=== PATIENT | female | born 1995 | race Caucasian/White ===

== ENCOUNTER → 2017-05-27 09:36 | Outpatient (CLI) | payer OTHER, SELFPAY | PROVIDERS: PCP Family Medicine; Visit Provider Physician Assistant | DX: R00.0 Tachycardia, unspecified (principal) | CPT/HCPCS: 93005 ==

== ENCOUNTER 2017-06-03 12:17 | Outpatient (CLI) | payer OTHER, SELFPAY ==
[2017-06-03 12:56] VITALS: BP 118/75; PULSE 123; RESP 18; TEMP 37.1; O2SAT 97; BMI 25.9
== END 2017-06-03 14:10 | disposition home or self-care (01) ==
LOC: OBOUT 12:24 → OB 12:26
PROVIDERS: PCP Nurse Practitioner Obstetrics & Gynecology; Referring Provider Nurse Practitioner Obstetrics & Gynecology; Visit Provider Nurse Practitioner Obstetrics & Gynecology
DX: O26.93 Pregnancy related conditions, unspecified, third trimester (principal); Z3A.32 32 weeks gestation of pregnancy; R60.0 Localized edema; R03.0 Elevated blood-pressure reading, without diagnosis of hypertension; R00.0 Tachycardia, unspecified
CPT/HCPCS: 59025

== ENCOUNTER 2017-06-22 14:36 | Outpatient (CLI) | payer OTHER, SELFPAY ==
[2017-06-22 15:04] VITALS: BMI 57.8
[2017-06-22 15:05] VITALS: BP 121/76; PULSE 119; RESP 18; TEMP 37.2; O2SAT 97; BMI 57.8
[2017-06-22 15:23] LABS: Microscopic, Urine URINE MICROSCOPIC (MICROSCOPIC)
[2017-06-22 15:28] LABS: Appearance,Urine CLEAR (Clear); Bilirubin,Urine Negative (Negative); Blood, Urine Negative (Negative); Color,Urine YELLOW (Yellow); Glucose,Urine (UA) Negative (Negative); Ketones,Urine Negative (Negative); Leukocyte Esterase,Urine Negative (Negative); Nitrate,Urine Negative (Negative); PH,Urine 6.5 (5.0-8.5); Protein,Urine Negative (Negative); Urobilinogen,Urine 0.2 EU/dl (0.2)
[2017-06-22 16:12] LABS: Bacteria,Urine 3+ /lpf; RBC,Urine Occasional #/hpf (0-3); Squamous Epithelial Cell,Urine TNTC #/hpf (0-5)
--- NOTE | 2017-06-22 17:08 | HMH.ACPN2 ---
Internal Medicine - PN: Subj *Date: 06/22/17 *Time: 17:08 Interval history: She is a 22-year-old 1 para 0 who is 34 weeks gestational age. She complains of a headache and she is known to have migraines. She had some spots in front of her eyes. Her blood pressure is normal. She also had a few contractions. Exam Vital signs and Labs for Last 24 Hours: Temp Pulse Resp BP Pulse Ox 99.0 F 119 H 18 121/76 97 06/22/17 15:05 06/22/17 15:05 06/22/17 15:05 06/22/17 15:05 06/22/17 15:05 Laboratory Results - last 24 hr 06/22/17 14:45: Urine Color Yellow, Urine Appearance Clear, Urine pH 6.5, Ur Specific [place] 1.010, Urine Protein Negative, Urine Glucose (UA) Negative, Urine Ketones Negative, Urine Blood Negative, Urine Nitrate Negative, Urine Bilirubin Negative, Urine Urobilinogen 0.2, Ur Leukocyte Esterase Negative, Urine RBC Occasional, Urine WBC 3-5, Ur Squamous Epith Cells Tntc, Ur Transition Epith Cell 5-10, Urine Bacteria 3+ I & O for Last 24 hours: Intake & Output 06/20/17 06/21/17 06/22/17 06/23/17 11:59 11:59 11:59 11:59 Weight 326 lb 4.546 oz - Constitutional no acute distress Assessment and Plan (1) False labor before 37 completed weeks of gestation Current visit: Yes Status: Acute Category: Medical Code(s): O47.00 - False labor before 37 completed weeks of gestation, unspecified trimester - Assessment and plan all Dx Assessment and Plan for all problems:: Her cervix is long and closed. Her contractions have settled now that she has had a liter of fluid. She also received some Tylenol her headache is better. We will send her on her way home. She will continue with her labetalol and magnesium at home.
== END 2017-06-22 17:17 | disposition home or self-care (01) ==
LOC: OBOUT 14:38 → OB 14:39
PROVIDERS: PCP Nurse Practitioner Obstetrics & Gynecology; Visit Provider Nurse Practitioner Obstetrics & Gynecology
DX: O26.93 Pregnancy related conditions, unspecified, third trimester (principal); Z3A.35 35 weeks gestation of pregnancy; R51 Headache
CPT/HCPCS: 59025; 81001; 87086; 96360

== ENCOUNTER → 2017-07-01 14:35 | Outpatient (REF) | payer OTHER, SELFPAY | LOC: LAB 14:35 | PROVIDERS: Visit Provider Nurse Practitioner Obstetrics & Gynecology | DX: Z34.90 Encounter for supervision of normal pregnancy, unspecified, unspecified trimester (principal); Z3A.36 36 weeks gestation of pregnancy | CPT/HCPCS: 86403 ==

== ENCOUNTER 2017-07-13 12:18 | Inpatient (IN) | payer OTHER, SELFPAY ==
[2017-07-13] VITALS (10 sets, daily range): BP systolic 119–154; BP diastolic 74–95; PULSE 100–134; RESP 20; TEMP 37; O2SAT 98; BMI 27.8
[2017-07-13 11:54] LABS: Microscopic, Urine URINE MICROSCOPIC (MICROSCOPIC)
[2017-07-13 11:55] LABS: Appearance,Urine SL CLOUDY (Clear); Bilirubin,Urine Negative (Negative); Blood, Urine Negative (Negative); Color,Urine YELLOW (Yellow); Glucose,Urine (UA) Negative (Negative); Ketones,Urine Negative (Negative); Leukocyte Esterase,Urine Negative (Negative); Nitrate,Urine Negative (Negative); Protein,Urine Negative (Negative); Specific Gravity, Urine <= 1.005 (1.005-1.030); Urobilinogen,Urine 0.2 EU/dl (0.2)
--- NOTE | 2017-07-13 12:11 | P.HP_ITS ---
OB - H&P: HPI Antepartum - History of Present Illness Chief complaint: She woke up this morning with numbness in her hands and lips. - History of Present Criteria for establishing EDC:: LMP confirmed by 1st trimester US Ultrasounds: normal 1st trimester US, normal mid trimester US Obstetrical complications: preeclampsia Medical complications: neurological Planning to breastfeed?: Yes [facility] History I have reviewed the patient's past medical history: Yes Medical History: Reports:: Asthma Other Surgeries: Yes: Colonoscopy Amputation: No Fractures: No - *Social History Smoking Status: Never smoker Alcohol Intake: current Alcohol Intake Frequency:: holidays/special occasions only Substance Use Type: denies use *Family Hx:: Cancer, Hypertension, Coronary Artery Disease, Diabetes [employer]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 History Para: 0 Review of Systems - Review of Systems Review of systems:: pertinent systems reviewed and negative unless documented below Meds Home Medications Medication Instructions Recorded Confirmed Type ferrous sulfate 325 mg (65 mg 325 mg PO DAILY tab 05/19/17 06/22/17 History iron) tablet 1 tab PO ONCE 05/19/17 06/22/17 History vitamin,calcium,cyojzvzb-zelk-uwhqm acid tablet Labetalol HCl [Normodyne 100mg 100 mg PO BID 06/03/17 06/22/17 History tablet] Magnesium 500 mg PO DAILY 06/22/17 06/22/17 History Allergies Allergy/AdvReac Type Severity Reaction Status Date / Time nickel [NICKEL] Allergy Unknown Verified 07/01/17 08:30 OB - H&P: Exam - Physical Exam Vital signs: Temp Pulse Resp BP Pulse Ox 98.6 F 101 H 20 141/80 98 07/13/17 11:39 07/13/17 11:55 07/13/17 11:55 07/13/17 11:55 07/13/17 11:39 - Constitutional no acute distress OB - Results - Labs Labs: Urine 07/13/17 Range/Units 11:00 Urine Color Yellow (Yellow) Urine Appearance Sl cloudy (Clear) Urine pH 7.0 (5.0-8.5) Ur Specific [place] <= 1.005 (1.005-1.030) Urine Protein Negative (Negative) Urine Glucose (UA) Negative (Negative) OB - A/P Antepartum (1) Preeclampsia Current visit: Yes Status: Acute - Additional Plan Plan: induction (She had numbness on the right side of her face today and her blood pressure is elevated) Planning to breastfeed?: Yes
[2017-07-13 12:23] LABS: Amorphous Sediment,Urine 1+ /lpf; Bacteria,Urine 2+ /lpf
[2017-07-13 13:15] LABS: Basophils % 0.3 % (0.1-2.0); Eosinophils # 0.1 K/mm3 (0.0-0.4); Eosinophils % 0.7 % (0.1-12.0); Hematocrit 37.5 % (37.0-47.0); Hemoglobin 12.7 g/dL (12.2-16.2); Lymphocytes # 2.1 K/mm3 (0.7-4.5); Lymphocytes % 16.8 K/mm3 (10-50); Mean Corpuscular HGB Conc 33.7 g/dL (31.8-35.4); Mean Corpuscular Hemoglobin 29.9 pg (27.0-31.2); Mean Corpuscular Volume 88.6 fl (81-99); Mean Platelet Volume 8.7 fl (7.4-10.4); Monocytes # 1.2 K/mm3 (0.1-1.0); Monocytes % 9.5 % (1.7-9.3); Neutrophils # 9.1 K/mm3 (1.8-7.8); Neutrophils % 72.7 % (37.0-80.0); Platelet Count 251 K/mm3 (142-424); Red Blood Count 4.24 M/mm3 (4.20-5.40); Red Cell Distribution Width 14.1 % (11.5-17.5); White Blood Count 12.6 K/mm3 (4.8-10.8)
[2017-07-13 13:35] LABS: Alanine Aminotransferase 22 U/L (12-78); Anion Gap 12.9 mEq/L (5-15); Aspartate Amino Transferase 14 U/L (15-37); Blood Urea Nitrogen 5 mg/dL (7-18); Carbon Dioxide 24 mmol/L (21.0-32.0); Chloride 104 mmol/L (98-107); Creatinine Clearance Estimated 188 mL/min (0-300); Creatinine,Serum 0.52 mg/dL (0.55-1.02); Estimated Glomerular Filt Rate 145 ml/min (>60); GFR (African American) 175 ML/MIN (>60); Glucose 71 mg/dL (74-106); Potassium 3.9 mmoL/L (3.5-5.1); Sodium 137 mmol/L (136-145); Uric Acid 3.8 mg/dL (2.6-7.2)
[2017-07-13 13:47] LABS: D-Dimer 932 (0-400)
[2017-07-13 13:51] LABS: Activated Partial Thrombo Time 25.5 seconds (23.6-34.0); Fibrinogen 500 mg/dL (204-500); INR 0.87 (0.9-1.1); Prothrombin Time 9.4 seconds (9.4-11.8)
--- NOTE | 2017-07-13 17:17 | HMH.ACPN2 ---
Internal Medicine - PN: Subj *Date: 07/13/17 *Time: 17:17 Interval history: She is doing well. She denies any further episodes of numbness in her face or hands. She is on magnesium sulfate 2 g an hour and her blood pressure is normal. She is having contractions about every 5 minutes. There are mild to moderate. As result of this I elected not to put any Cervidil and since I did not want her to have tetanic contractions. Her nonstress test is reactive. Exam Vital signs and Labs for Last 24 Hours: Temp Pulse Resp BP Pulse Ox 98.6 F 101 H 20 141/80 98 07/13/17 11:39 07/13/17 11:55 07/13/17 11:55 07/13/17 11:55 07/13/17 11:39 Laboratory Results - last 24 hr 07/13/17 11:00: Urine Color Yellow, Urine Appearance Sl cloudy, Urine pH 7.0, Ur Specific [place] <= 1.005, Urine Protein Negative, Urine Glucose (UA) Negative, Urine Ketones Negative, Urine Blood Negative, Urine Nitrate Negative, Urine Bilirubin Negative, Urine Urobilinogen 0.2, Ur Leukocyte Esterase Negative, Urine WBC 3-5, Ur Squamous Epith Cells 5-10, Amorphous Sediment 1+, Urine Bacteria 2+ 07/13/17 13:00: Blood Type A Positive, Antibody Screen Negative 07/13/17 13:00: WBC 12.6 H, RBC 4.24, Hgb 12.7, Hct 37.5, MCV 88.6, MCH 29.9, MCHC 33.7, RDW 14.1, Plt Count 251, MPV 8.7, Neut % (Auto) 72.7, Lymph % (Auto) 16.8, [place] % (Auto) 9.5 H, Eos % (Auto) 0.7, Baso % (Auto) 0.3, Neut # (Auto) 9.1 H, Lymph # (Auto) 2.1, [place] # (Auto) 1.2 H, Eos # (Auto) 0.1, Baso # (Auto) 0.0 07/13/17 13:00: PT 9.4, INR 0.87 L, APTT 25.5, Fibrinogen 500, D-Dimer 932 H* 07/13/17 13:00: Sodium 137, Potassium 3.9, Chloride 104, Carbon Dioxide 24, Anion Gap 12.9, BUN 5 L, Creatinine 0.52 L, Estimated Creat Clear 188, Estimated GFR 145, Est GFR ( Amer) 175, Glucose 71 L, Uric Acid 3.8, AST 14 L, ALT 22 I & O for Last 24 hours: Intake & Output 07/11/17 07/12/17 07/13/17 07/14/17 11:59 11:59 11:59 11:59 Weight 157 lb - Constitutional no acute distress Assessment and Plan (1) Preeclampsia Current visit: Yes Status: Acute Category: Medical Code(s): O14.90 - Unspecified pre-eclampsia, unspecified trimester - Assessment and plan all Dx Assessment and Plan for all problems:: She is doing much better. We will continue to watch her overnight. We will plan to start oxytocin tomorrow morning. Her blood pressure has normalized and she has no further episodes of numbness.
[2017-07-14] VITALS (28 sets, daily range): BP systolic 97–150; BP diastolic 53–100; PULSE 107–131; RESP 13–18; TEMP 36.7–37.3; O2SAT 98–99
[2017-07-14 07:18] LABS: Magnesium 5.2 mg/dL (1.4-2.2)
--- NOTE | 2017-07-14 08:07 | HMH.LABNOT ---
Labor Note - Subjective: Date: 07/14/17 Time: 08:07 regular contraction - Objective: Contractions:: every 4-5 minutes Effacement:: 50% Station: -3 Membranes: intact - Fetus: Monitoring?: Yes monitoring type:: External - Assessment: Labor progressing?: No Cephalopelvic disproportion?: No Patient Problems: All Active Problems False labor before 37 completed weeks of gestation (Acute) Preeclampsia (Acute) (Acute) - Plan: Anesthesia for epidural?: No Continue to labor down?: Yes Plan for ?: No Continue to monitor?: Yes Start pushing?: No Comment:: Her cervix has not changed overnight despite having contractions all night long. She is still closed 50% Station -3. We will continue oxytocin for now. If she does not change her cervix and we will plan for a later today.
--- NOTE | 2017-07-14 11:03 | HMH.LABNOT ---
Labor Note - Subjective: Date: 07/14/17 Time: 11:03 regular contraction - Objective: NST:: Reactive Contractions:: every 2-3 minutes Effacement:: 50% Station: -2 Membranes: intact - Fetus: Monitoring?: Yes monitoring type:: External - Assessment: Labor progressing?: No Cephalopelvic disproportion?: No Patient Problems: All Active Problems False labor before 37 completed weeks of gestation (Acute) Preeclampsia (Acute) (Acute) - Plan: Anesthesia for epidural?: No Continue to labor down?: Yes Plan for ?: No Continue to monitor?: Yes Start pushing?: No
--- NOTE | 2017-07-14 13:40 | HMH.LABNOT ---
Labor Note - Subjective: Date: 07/14/17 Time: 13:40 regular contraction - Objective: NST:: Reactive Cervical Dilation:: 1-2 Effacement:: 50% Station: -2 Membranes: ruptured, articially ruptured - Fetus: Monitoring?: Yes monitoring type:: External - Assessment: Labor progressing?: Yes Cephalopelvic disproportion?: No Patient Problems: All Active Problems False labor before 37 completed weeks of gestation (Acute) Preeclampsia (Acute) (Acute) - Plan: Anesthesia for epidural?: No Continue to labor down?: Yes Plan for ?: No Continue to monitor?: Yes Start pushing?: No
--- NOTE | 2017-07-14 16:15 | HMH.ANESCL ---
[facility] Anesthesia Checklist - Patient Identification Patient Identification: Arm Band - Structural Data Admitted From: Inpatient Planned Operative Procedure/s: labor epidural Consent for Planned Operative Procedure(s) Verified: Yes Verified Documents: History and Physical - NPO Status Verified Time NPO: 00:00 - Additional verifications Anesthesia Reactions: No - Airway Assessment C-Spine Mobility Assessed: Yes TMJ Mobility Assessed: Yes Dentition: Good Dentition - Neurological Assessment Level of Consciousness: Awake, Alert - Anesthesia Plan Anesthesia Risk discussed: Yes Anesthesia Plan: Verified ASA Class: II Anesthesia Type: Epidural [facility] Anesthesia HX I have reviewed the patient's past medical history: Yes Medical History: Reports:: Asthma Other Surgeries: Yes: Colonoscopy Amputation: No Fractures: No *Family Hx:: Cancer, Hypertension, Coronary Artery Disease, Diabetes
--- NOTE | 2017-07-14 16:55 | HMH.LABNOT ---
Labor Note - Subjective: Date: 07/14/17 Time: 16:56 regular contraction - Objective: NST:: Reactive Contractions:: every 2-3 minutes Cervical Dilation:: 2 Effacement:: 50% Station: -3 Membranes: articially ruptured - Fetus: Monitoring?: Yes monitoring type:: External - Assessment: Labor progressing?: No Patient Problems: All Active Problems False labor before 37 completed weeks of gestation (Acute) Preeclampsia (Acute) (Acute) - Plan: Anesthesia for epidural?: Yes Continue to labor down?: Yes Plan for ?: No Continue to monitor?: Yes Start pushing?: No Comment:: She continues to be just 2 cm 50% effaced station -3. She has an epidural and she is hali every 3-4 minutes. We will continue for the next few hours and see how she does. If she does not progress we will consider a section.
--- NOTE | 2017-07-14 19:42 | HMH.LABNOT ---
Labor Note - Subjective: Date: 07/14/17 Time: 19:43 regular contraction - Objective: NST:: Reactive Contractions:: every 2-3 minutes Cervical Dilation:: 2 Effacement:: 50% Station: -2 Membranes: articially ruptured - Fetus: Monitoring?: Yes monitoring type:: External - Assessment: Labor progressing?: No Cephalopelvic disproportion?: Yes Patient Problems: All Active Problems False labor before 37 completed weeks of gestation (Acute) Preeclampsia (Acute) (Acute) - Plan: Anesthesia for epidural?: Yes Continue to labor down?: No Plan for ?: Yes Continue to monitor?: Yes Start pushing?: No Comment:: She really has not made any progress for the last 8 hours. She continues to be just 2 cm 50%. The nonstress test is reactive. She is having regular contractions and not progressing at all. We will go ahead with a section. We discussed the risks of surgery that includes bleeding, infection, injuries to the bowel and bladder. We discussed the risk of DVT. All questions were answered and consents were signed.
--- NOTE | 2017-07-14 21:00 | HMH.OPNOTE ---
Date of procedure: 07/14/17 Pre-op Diagnosis:: Mild -induced hypertension, term , pelvic disproportion Post-op diagnosis:: same Procedure performed:: Primary lower segment transverse section, B Zaragoza suture Surgeon:: Rocael Fitzgerald MD Flat Drier(s):: Dr. Park LIBRARIAN SPECIAL LIBRARY:: Agustin Vizcaino Anesthesia: epidural Estimated blood loss (mL): 600 Clinical Note:: She is a 22-year-old 1 para 0 who was 38+ weeks gestational age. She was admitted yesterday with increase in her blood pressure. She had numbness in her hands and lips and then had numbness on the right side of her face. That subsequently resolved. She has had a previous history of migraines. Her blood pressure was slightly elevated and given this fact and the fact that she had some neurologic signs we elected to induce her labor. She was started on IV oxytocin and really failed to progress beyond 2 cm. This was despite IV oxytocin all day long. As a result of that pelvic disproportion was diagnosed and after discussing the risks and benefits she was taken for a primary lower segment transverse section. Operative findings:: She delivered a liveborn male child at 8:33 PM in the evening of July 14, 2017. Baby had Apgars of 8 at 1 minute and 9 at 5 minutes. Ovaries and tubes appeared normal. Operative note:: She was taken to the operating room where epidural anesthesia was found be adequate. She was prepped and draped in normal sterile fashion in the supine position with a leftward tilt. A Sherman catheter was in the bladder. A Pfannenstiel skin incision was made with knife then carried through to the underlying layer of fascia with cautery. The fascia was opened in the midline with cautery and extended laterally using Baker scissors. [place] clamps were applied to the superior aspect of the fascial incision which was tented up and the underlying rectus muscles dissected off using cautery. The [place] clamps were then applied to the inferior aspect of the fascial incision which in a similar fashion was tented up and the underlying rectus muscles dissected off using cautery. The rectus muscles were then in the midline, the peritoneum identified, and entered sharply with Metzenbaum scissors. This incision was then extended superiorly and inferiorly with cautery. We had good visualization of the bladder inferiorly. The bladder peritoneum was then opened in the midline and extended laterally using Metzenbaum scissors. A bladder flap was created digitally. The lower blade of the Ray was inserted so as to push the bladder out of the way. Transverse incision was made through the uterine muscle to the amnion. This incision was then extended laterally using fingers traction. The amnion was entered sharply with knife. The infant's head was then delivered atraumatically. This was followed by the anterior shoulder and the rest of the 's body atraumatically. The oropharynx and nasopharynx were bulb suctioned. The was then handed off to Dr. Devine who assigned Apgars of 8 at 1 minute and 9 at 5 minutes. We then obtained cord blood as well as cord pH. PH of 7.46. Using gentle traction on the cord and countertraction on the fundus I was able to easily deliver the placenta intact. It had a normal three-vessel cord. The uterus was then cleared of clots and debris and exteriorized from the abdominal cavity. The uterine incision was then closed using running 0 Vicryl suture in a locked fashion. A second layer of the same suture was used to imbricate the first layer. The bladder peritoneum was then closed using running 2-0 Vicryl suture in a locked fashion. The uterus was still quite boggy despite IV oxytocin. As result of that I elected to place a B Zaragoza suture. Using a #1 Vicryl suture with a large needle I took a large bite anteriorly. I then passed this over the fundus of the uterus posteriorly. I took 2 bites here. I then passed the cy
--- NOTE | 2017-07-14 21:05 | P.OP_ITS ---
Date of procedure: 07/14/17 Pre-op Diagnosis:: Mild -induced hypertension, term , pelvic disproportion Post-op diagnosis:: same Procedure performed:: Primary lower segment transverse section, B Zaragoza suture Surgeon:: Rocael Fitzgerald MD Mental Health Therapist(s):: Dr. Park DRIVING INSTRUCTOR:: Agustin Vizcaino Anesthesia: epidural Estimated blood loss (mL): 600 Clinical Note:: She is a 22-year-old 1 para 0 who was 38+ weeks gestational age. She was admitted yesterday with increase in her blood pressure. She had numbness in her hands and lips and then had numbness on the right side of her face. That subsequently resolved. She has had a previous history of migraines. Her blood pressure was slightly elevated and given this fact and the fact that she had some neurologic signs we elected to induce her labor. She was started on IV oxytocin and really failed to progress beyond 2 cm. This was despite IV oxytocin all day long. As a result of that pelvic disproportion was diagnosed and after discussing the risks and benefits she was taken for a primary lower segment transverse section. Operative findings:: She delivered a liveborn male child at 8:33 PM in the evening of July 14, 2017. Baby had Apgars of 8 at 1 minute and 9 at 5 minutes. Ovaries and tubes appeared normal. Operative note:: She was taken to the operating room where epidural anesthesia was found be adequate. She was prepped and draped in normal sterile fashion in the supine position with a leftward tilt. A [place] catheter was in the bladder. A Pfannenstiel skin incision was made with knife then carried through to the underlying layer of fascia with cautery. The fascia was opened in the midline with cautery and extended laterally using Baker scissors. [place] clamps were applied to the superior aspect of the fascial incision which was tented up and the underlying rectus muscles dissected off using cautery. The [place] clamps were then applied to the inferior aspect of the fascial incision which in a similar fashion was tented up and the underlying rectus muscles dissected off using cautery. The rectus muscles were then in the midline, the peritoneum identified, and entered sharply with Metzenbaum scissors. This incision was then extended superiorly and inferiorly with cautery. We had good visualization of the bladder inferiorly. The bladder peritoneum was then opened in the midline and extended laterally using Metzenbaum scissors. A bladder flap was created digitally. The lower blade of the Ray was inserted so as to push the bladder out of the way. Transverse incision was made through the uterine muscle to the amnion. This incision was then extended laterally using fingers traction. The amnion was entered sharply with knife. The infant's head was then delivered atraumatically. This was followed by the anterior shoulder and the rest of the 's body atraumatically. The oropharynx and nasopharynx were bulb suctioned. The was then handed off to Dr. Devine who assigned Apgars of 8 at 1 minute and 9 at 5 minutes. We then obtained cord blood as well as cord pH. PH of 7.46. Using gentle traction on the cord and countertraction on the fundus I was able to easily deliver the placenta intact. It had a normal three-vessel cord. The uterus was then cleared of clots and debris and exteriorized from the abdominal cavity. The uterine incision was then closed using running 0 Vicryl suture in a locked fashion. A second layer of the same suture was used to imbricate the first layer. The bladder peritoneum was then closed using running 2-0 Vicryl suture in a locked fashion. The uterus was still quite b
--- NOTE | 2017-07-14 21:20 | P.PN_ITS ---
[facility] Anesthesia Record Part I Intake, IV Amount: 2,000 Estimated blood loss (mL): 600 Urine output (mL): 150 Blood Pressure: 136/71 SaO2: 98 Pulse Rate: 130 Respiratory Rate: 16 Temperature: 99.2 F Patient is:: Awake, Stable Stable to PACU at:: 21:05
--- NOTE | 2017-07-14 21:20 | HMH.ANESII ---
[facility] Anesthesia Record Part II Discharge Time: 21:35 Destination: Obstetric PACU nurse assessment reviewed?: Yes Patient Condition:: Good Anesthesia Complications:: None
--- NOTE | 2017-07-14 22:33 | PC.NURSE ---
total u/o from f/c 375 ml dark cloudy urine
--- NOTE | 2017-07-14 22:37 | PC.NURSE ---
fundus firms with massage, but bogs easily, noted at last massage that when massaging top and just behind fundus a moderate to heavy flow rubra lochia ejected, this was reported to Yeison RN
[2017-07-15] VITALS (8 sets, daily range): BP systolic 103–130; BP diastolic 59–83; PULSE 93–104; RESP 16; TEMP 36.7–36.8; O2SAT 98
[2017-07-15 05:58] LABS: Cord Blood PH 7.46 (7.35-7.45)
[2017-07-15 06:55] LABS: Basophils % 0.1 % (0.1-2.0); Eosinophils % 0.1 % (0.1-12.0); Hematocrit 31.7 % (37.0-47.0); Hemoglobin 10.5 g/dL (12.2-16.2); Lymphocytes # 1.4 K/mm3 (0.7-4.5); Lymphocytes % 9.7 K/mm3 (10-50); Mean Corpuscular Hemoglobin 30.3 pg (27.0-31.2); Mean Corpuscular Volume 91.6 fl (81-99); Mean Platelet Volume 8.8 fl (7.4-10.4); Monocytes % 6.7 % (1.7-9.3); Neutrophils # 12.1 K/mm3 (1.8-7.8); Neutrophils % 83.3 % (37.0-80.0); Platelet Count 194 K/mm3 (142-424); Red Blood Count 3.46 M/mm3 (4.20-5.40); Red Cell Distribution Width 14.5 % (11.5-17.5); White Blood Count 14.6 K/mm3 (4.8-10.8)
--- NOTE | 2017-07-15 07:55 | HMH.PHAVTE ---
[facility] Pharmacy VTE Monitoring - Patient Demographics Admission date: 07/13/07 Report Date: 07/15/17 Time: 07:56 Allergies/Adverse Reactions: Patient Allergies nickel [NICKEL] Allergy (Unknown, Verified 07/01/17 08:30) Height: 1.6 m Weight: 71.214 kg Patient Problems: Current Active Problems Preeclampsia (Acute) - VTE Risk Labs: VTE Related Lab Results Hgb 10.5 g/dL (12.2-16.2) L 07/15/17 06:30 Hct 31.7 % (37.0-47.0) L 07/15/17 06:30 Plt Count 194 K/mm3 (142-424) 07/15/17 06:30 PT 9.4 seconds (9.4-11.8) 07/13/17 13:00 INR 0.87 (0.9-1.1) L 07/13/17 13:00 APTT 25.5 seconds (23.6-34.0) 07/13/17 13:00 Fibrinogen 500 mg/dL (204-500) 07/13/17 13:00 BUN 5 mg/dL (7-18) L 07/13/17 13:00 Creatinine 0.52 mg/dL (0.55-1.02) L 07/13/17 13:00 Estimated Creat Clear 188 mL/min (0-300) 07/13/17 13:00 - Prophylaxis VTE Prophylaxis Ordered?: Yes Types of VTE Prophylaxis: IPCS Knee High Location of Applied Device: Bilateral Lower Extremeties
[2017-07-15 07:57] LABS: Magnesium 5.4 mg/dL (1.4-2.2)
--- NOTE | 2017-07-15 08:03 | P.PN_ITS ---
Internal Medicine - PN: Subj *Date: 07/15/17 *Time: 08:02 Interval history: She is doing well this morning. She is eating and drinking and ambulating. She is breast-feeding. Her lochia is normal. She is still on magnesium sulfate and her blood pressure is normal. Exam Vital signs and Labs for Last 24 Hours: Temp Pulse Resp BP Pulse Ox 98.4 F 121 H 15 123/71 99 07/14/17 21:35 07/14/17 21:35 07/14/17 21:35 07/15/17 05:14 07/14/17 21:35 Laboratory Results - last 24 hr 07/14/17 20:45: Cord ABG pH 7.46 H 07/15/17 06:30: Magnesium 5.4 H 07/15/17 06:30: WBC 14.6 H, RBC 3.46 L, Hgb 10.5 L, Hct 31.7 L, MCV 91.6, MCH 30.3, MCHC 33.0, RDW 14.5, Plt Count 194, MPV 8.8, Neut % (Auto) 83.3 H, Lymph % (Auto) 9.7 L, [place] % (Auto) 6.7, Eos % (Auto) 0.1, Baso % (Auto) 0.1, Neut # ( Auto) 12.1 H, Lymph # (Auto) 1.4, [place] # (Auto) 1.0, Eos # (Auto) 0.0, Baso # ( Auto) 0.0 I & O for Last 24 hours: Intake & Output 07/12/17 07/13/17 07/14/17 07/15/17 11:59 11:59 11:59 11:59 Intake Total 1999 Balance 1999 Weight 157 lb 157 lb Microbiology Reports for the Last 24 Hours: Microbiology 07/13/17 11:00 Urine,Clean Catch Urine Culture - Final Multiple organisms, suggests contamination. - Constitutional no acute distress Assessment and Plan (1) Preeclampsia Current visit: Yes Status: Acute Category: Medical Code(s): O14.90 - Unspecified pre-eclampsia, unspecified trimester - Assessment and plan all Dx Assessment and Plan for all problems:: She is doing well this morning. We will plan to keep her magnesium sulfate going for 24 hours post surgery. We will send her home in 48 hours.
--- NOTE | 2017-07-16 07:23 | PC.NURSE ---
REPORT GIVEN TO LYNNRN
--- NOTE | 2017-07-16 08:29 | HMH.ACPN2 ---
Internal Medicine - PN: Subj *Date: 07/16/17 *Time: 08:29 Interval history: She is doing very well this morning. She is eating and drinking and ambulating. She is breast-feeding. Her pain is reasonably well controlled. Exam Vital signs and Labs for Last 24 Hours: Temp Pulse Resp BP Pulse Ox 98.3 F 102 H 16 123/75 98 07/15/17 18:08 07/15/17 18:08 07/15/17 18:08 07/15/17 18:08 07/15/17 18:08 I & O for Last 24 hours: Intake & Output 07/13/17 07/14/17 07/15/17 07/16/17 11:59 11:59 11:59 11:59 Intake Total 1999 Balance 1999 Weight 157 lb 157 lb Microbiology Reports for the Last 24 Hours: Microbiology 07/13/17 11:00 Urine,Clean Catch Urine Culture - Final Multiple organisms, suggests contamination. - Constitutional no acute distress Assessment and Plan (1) Preeclampsia Current visit: Yes Status: Acute Category: Medical Code(s): O14.90 - Unspecified pre-eclampsia, unspecified trimester (2) Fetopelvic disproportion, delivered Current visit: Yes Status: Acute Category: Medical Code(s): O33.9 - Maternal care for disproportion, unspecified - Assessment and plan all Dx Assessment and Plan for all problems:: She is doing very well this morning. We will plan to send her home tomorrow.
[2017-07-16 11:22] VITALS: RESP 18
[2017-07-16 15:41] VITALS: RESP 18
[2017-07-16 21:00] VITALS: BP 129/73; PULSE 77; RESP 18; TEMP 36.7
--- NOTE | 2017-07-17 11:21 | HMH.DCSUM ---
General - General Admission date: 07/13/07 Discharge date: 07/17/17 HPI HPI: She is a 22-year-old 1 now para 1 who is 38 3 weeks gestational age. On the morning of her admission she had some tingling in her mouth and hands. She then had complete paralysis of the right side of her face. This subsequently resolved within a couple of hours. She is known to have migraines. Her blood pressure was elevated. She had increased blood pressure and as result of that was brought in for observation. She was having occasional contractions every 5 minutes on admission. As result of that I did not elect to insert Cervidil. Objective Vital signs: Temp Pulse Resp BP Pulse Ox 98.0 F 77 18 129/73 98 07/16/17 21:00 07/16/17 21:00 07/16/17 21:00 07/16/17 21:07/15/17 18:08 no acute distress Hospital Course Hospital Course: She was started on IV oxytocin on the morning of July 14, 2017. She really failed to progress beyond 2 cm and the baby's head was still quite high. After having discussed the risks and benefits we elected to go ahead with a primary lower segment transverse section. She delivered a liveborn male child at 8:33 PM in the evening of July 14, 2017. The baby weighed 7 lbs. 8 oz. and was 20 inches long. He had Apgars of 8 at 1 minute and 9 at 5 minutes. She has done well postoperatively and has remained afebrile throughout her hospitalization. Her blood pressure has normalized. She is eating and drinking and ambulating. She has a positive blood, she is rubella immune and was group A streptococcus negative. Her incision is clean and dry. She is discharged home to follow-up with me in approximately 2 weeks time. She will continue with her vitamins and iron. She was given a prescription for Percocet 5/325, 30 tablets. DS: Diagnosis - Discharge Diagnosis (1) Preeclampsia Status: Acute (2) Fetopelvic disproportion, delivered Status: Acute Discharge Plan - Patient Discharge Instructions ACTIVITY: No heavy lifting DIET: continue same diet - Follow up Plan Disposition: Home, Self-Correction Medications: Home Medications Medication Instructions Recorded Confirmed Type ferrous sulfate 325 mg (65 mg 325 mg PO DAILY tab 05/19/17 07/14/17 History iron) tablet krinoqob-Sb-wpm-Fe-FA 1 tab PO DAILY 05/19/17 07/15/17 History tablet Labetalol HCl [Normodyne 100mg 100 mg PO BID 06/03/17 07/14/17 History tablet] Magnesium 500 mg PO DAILY 06/22/17 07/14/17 History Prescriptions/Medication Reconciliation: Continue ferrous sulfate 325 mg (65 mg iron) tablet 325 mg PO DAILY tab dlmlxofn-Nx-wct-Fe-FA tablet 1 tab PO DAILY Magnesium 500 mg PO DAILY Labetalol HCl [Normodyne 100mg tablet] 100 mg PO BID
--- NOTE | 2017-07-17 11:24 | P.DS_ITS ---
General - General Admission date: 07/13/07 Discharge date: 07/17/17 HPI HPI: She is a 22-year-old 1 now para 1 who is 38 3 weeks gestational age. On the morning of her admission she had some tingling in her mouth and hands. She then had complete paralysis of the right side of her face. This subsequently resolved within a couple of hours. She is known to have migraines. Her blood pressure was elevated. She had increased blood pressure and as result of that was brought in for observation. She was having occasional contractions every 5 minutes on admission. As result of that I did not elect to insert Cervidil. Objective Vital signs: Temp Pulse Resp BP Pulse Ox 98.0 F 77 18 129/73 98 07/16/17 21:00 07/16/17 21:00 07/16/17 21:00 07/16/17 21:07/15/17 18:08 no acute distress Hospital Course Hospital Course: She was started on IV oxytocin on the morning of July 14, 2017. She really failed to progress beyond 2 cm and the baby's head was still quite high. After having discussed the risks and benefits we elected to go ahead with a primary lower segment transverse section. She delivered a liveborn male child at 8:33 PM in the evening of July 14, 2017. The baby weighed 7 lbs. 8 oz. and was 20 inches long. He had Apgars of 8 at 1 minute and 9 at 5 minutes. She has done well postoperatively and has remained afebrile throughout her hospitalization. Her blood pressure has normalized. She is eating and drinking and ambulating. She has a positive blood, she is rubella immune and was group A streptococcus negative. Her incision is clean and dry. She is discharged home to follow-up with me in approximately 2 weeks time. She will continue with her vitamins and iron. She was given a prescription for Percocet 5/325, 30 tablets. DS: Diagnosis - Discharge Diagnosis (1) Preeclampsia Status: Acute (2) Fetopelvic disproportion, delivered Status: Acute Discharge Plan - Patient Discharge Instructions ACTIVITY: No heavy lifting DIET: continue same diet - Follow up Plan Disposition: Home, Self-Senior Living Medications: Home Medications Medication Instructions Recorded Confirmed Type ferrous sulfate 325 mg (65 mg 325 mg PO DAILY tab 05/19/17 07/14/17 History iron) tablet sqmpowjs-Hu-eow-Fe-FA 1 tab PO DAILY 05/19/17 07/15/17 History tablet Labetalol HCl [Normodyne 100mg 100 mg PO BID 06/03/17 07/14/17 History tablet] Magnesium 500 mg PO DAILY 06/22/17 07/14/17 History Prescriptions/Medication Reconciliation: Continue ferrous sulfate 325 mg (65 mg iron) tablet 325 mg PO DAILY tab qduobpia-Dj-wgs-Fe-FA tablet 1 tab PO DAILY Magnesium 500 mg PO DAILY Labetalol HCl [Normodyne 100mg tablet] 100 mg PO BID
== END 2017-07-17 16:15 | disposition home or self-care (01) | DRG 766 ==
LOC: OBOUT 12:19
PROVIDERS: Admitting Provider Nurse Practitioner Obstetrics & Gynecology; PCP Family Medicine; Visit Provider Nurse Practitioner Obstetrics & Gynecology
PROC: 10D00Z1 Extraction of Products of Conception, Low, Open Approach (ICD-10-PCS; CPT 59514; principal; 2017-07-14 20:20)
DX: O14.03 Mild to moderate pre-eclampsia, third trimester (principal); O64.8XX0 Obstructed labor due to other malposition and malpresentation, not applicable or unspecified; Z3A.38 38 weeks gestation of pregnancy; Z37.0 Single live birth
CPT/HCPCS: 59514; 36415; 59025; 80048; 81001; 82800; 83735; 84450; 84460; 84550; 85025; 85378; 85384; 85610; 85730; 86850; 87086; 94761; J2405

== ENCOUNTER → 2017-12-02 08:17 | Outpatient (CLI) | payer OTHER, SELFPAY | PROVIDERS: PCP Family Medicine; Visit Provider Physician Assistant | DX: R00.0 Tachycardia, unspecified (principal) | CPT/HCPCS: 93225; 93226 ==

== ENCOUNTER → 2017-12-06 17:32 | Outpatient (CLI) | payer OTHER, SELFPAY ==
[2017-12-06 17:55] LABS: Basophils # 0.1 K/mm3 (0-0.2); Basophils % 0.7 % (0.1-2.0); Eosinophils # 0.2 K/mm3 (0.0-0.4); Eosinophils % 2.2 % (0.1-12.0); Hematocrit 37.8 % (37.0-47.0); Hemoglobin 12.1 g/dL (12.2-16.2); Lymphocytes # 2.8 K/mm3 (0.7-4.5); Lymphocytes % 32.7 K/mm3 (10-50); Mean Corpuscular HGB Conc 32.1 g/dL (31.8-35.4); Mean Corpuscular Hemoglobin 27.6 pg (27.0-31.2); Mean Corpuscular Volume 86.1 fl (81-99); Mean Platelet Volume 7.6 fl (7.4-10.4); Monocytes # 0.5 K/mm3 (0.1-1.0); Monocytes % 5.6 % (1.7-9.3); Neutrophils % 58.9 % (37.0-80.0); Platelet Count 421 K/mm3 (142-424); Red Blood Count 4.39 M/mm3 (4.20-5.40); Red Cell Distribution Width 13.6 % (11.5-17.5); White Blood Count 8.5 K/mm3 (4.8-10.8)
[2017-12-06 18:48] LABS: Alanine Aminotransferase 35 U/L (12-78); Albumin Level 3.7 gm/dL (3.4-5.0); Albumin/Globulin Ratio 1.1 (1.1-1.8); Alkaline Phosphatase 111 U/L (46-116); Anion Gap 14.9 mEq/L (5-15); Aspartate Amino Transferase 19 U/L (15-37); Bilirubin,Total 0.2 mg/dL (0.2-1.0); Blood Urea Nitrogen 13 mg/dL (7-18); Carbon Dioxide 26 mmol/L (21.0-32.0); Chloride 108 mmol/L (98-107); Creatinine,Serum 0.58 mg/dL (0.55-1.02); Estimated Glomerular Filt Rate 128 ml/min (>60); Free T4 (Free Thyroxine) 0.97 ng/dl (0.76-1.46); GFR (African American) 155 ML/MIN (>60); Globulin 3.5 gm/dl (1.3-3.2); Glucose 105 mg/dL (74-106); Potassium 3.9 mmoL/L (3.5-5.1); Sodium 145 mmol/L (136-145); Thyroid Stimulating Hormone 1.75 uIU/ml (0.358-3.740); Total Protein,Serum 7.2 gm/dL (6.4-8.2)
[2017-12-09 09:09] LABS: Vitamin B12 583 pg/mL (232-1245)
== END ==
PROVIDERS: Visit Provider Physician Assistant
DX: G43.119 Migraine with aura, intractable, without status migrainosus (principal); E01.0 Iodine-deficiency related diffuse (endemic) goiter; R00.0 Tachycardia, unspecified
CPT/HCPCS: 36415; 80053; 82607; 84439; 84443; 85025

== ENCOUNTER → 2017-12-10 15:00 | Outpatient (CLI) | payer OTHER, SELFPAY ==
--- NOTE | 2017-12-10 15:02 | US_ITS ---
US thyroid COMPARISON: Ultrasound thyroid 08/10/2016 HISTORY: Possible thyroid enlargement TECHNIQUE: Targeted ultrasound the thyroid FINDINGS: The isthmus of the gland appears normal. The right lobe measures 1.0 x 3.8 x 1.6 cm. Left lobe measures 0.9 x 3.7 x 1.3 cm. There is homogeneous echogenicity of both lobes. There are no cystic or solid nodules seen. There is somewhat decreased vascularity to each lobe. IMPRESSION: Normal size gland, no nodules seen, no significant interval change from the previous exam
== END ==
PROVIDERS: Family Provider Family Medicine; PCP Family Medicine; Visit Provider Family Medicine
DX: E01.0 Iodine-deficiency related diffuse (endemic) goiter (principal)
CPT/HCPCS: 76536

== ENCOUNTER → 2017-12-16 16:40 | Outpatient (CLI) | payer OTHER, SELFPAY | PROVIDERS: PCP Family Medicine; Visit Provider Physician Assistant | DX: R07.9 Chest pain, unspecified (principal) | CPT/HCPCS: 93005 ==

== ENCOUNTER → 2017-12-23 08:34 | Outpatient (CLI) | payer OTHER, SELFPAY ==
--- NOTE | 2017-12-23 08:37 | CA_ITS ---
PROCEDURE: 2-D M-mode and color Doppler study INDICATIONS FOR THE TEST: Chest pain + COPD Heart Murmur Tobacco Smoking Palpitations Fatigue Syncope Edema Hypertension Diabetes Mellitus Rheumatic Fever SOB GONZALES Obesity Hyperlipidemia Family History HD Additional History PATIENT INFORMATION HEIGHT: 63 WEIGHT:138 GENDER: Female B/P:120/70 2-D/M-MODE INTERPRETATION: 2-D MEASUREMENTS OBSERVED VALUES IN CMS Right Ventricular Dimension (RVDd) 1.7 Interventricular Septum (Thickness)(IVsd) 0.9 Left Ventricular Internal Dimensions(LVIDd) 4.7 Left Ventricular Posterior Wall (Thickness)(LVPWd) 0.9 Aortic Root 2.7 Aortic Cusp Separation 2.0 Left Atrial Dimensions (LAD) 3.1 2D 1. Left atrium is normal size, left ventricle is normal size, there is no concentric left ventricular hypertrophy, visually estimated ejection fraction 55% with no obvious regional wall motion abnormality. 2. The right atrium and right ventricle are normal size and contractility. 3. The aortic, mitral and tricuspid valvular grossly normal. 4. The pulmonic valve is poorly visualized. 5. No significant pericardial effusion noted. DOPPLER INTERROGATION: Doppler interrogation of the aortic, mitral and tricuspid valvular presence of trace mitral and tricuspid regurgitation, tricuspid regurgitant jet velocity is insufficient for calculation of the right ventricular systolic pressure, diastolic parameters are within normal range. CONCLUSION: 1. Normal left ventricular size, preserved left ventricular systolic function, visually estimated ejection fraction 55% with no obvious regional wall motion abnormality, diastolic parameters are within normal range. 2. Trace mitral and tricuspid regurgitation 3. No significant pericardial effusion noted.
== END ==
PROVIDERS: Family Provider Family Medicine; PCP Family Medicine; Visit Provider Family Medicine
DX: R07.9 Chest pain, unspecified (principal)
CPT/HCPCS: 93306

== ENCOUNTER → 2018-01-11 07:38 | Outpatient (CLI) | payer OTHER, SELFPAY ==
--- NOTE | 2018-01-11 07:39 | MR_ITS ---
MR head/brain wo con HISTORY: Severe headache with dizziness and blurred vision ITS.REASON: migraine ORDERING PHYSICIAN: Ciara Valentin MD PATIENT AGE: 22 years Comparison: None TECHNIQUE: Standard multiplanar multiecho sequences are performed without contrast. FINDINGS: No midline shift, mass effect, intracranial hemorrhage, or hydrocephalus is evident. The cerebellopontine angles, cerebellum, and brainstem are unremarkable. No evidence of pituitary mass or compression upon the optic present. No cerebellar tonsillar ectopia. The hippocampal gyri are unremarkable. There is a focal area of mild prominence of the temporal horn of the right lateral ventricle. It is of questionable clinical significance and could be due to a small cyst at 5 x 6 mm. The remaining ventricles have an unremarkable appearance. No mastoid effusion or sinus air-fluid level. No large aneurysms. IMPRESSION: 1. No acute intracranial findings. 2. Small area of focal enlargement of the temporal horn of the right lateral ventricle of questionable clinical significance. No evidence of hydrocephalus. 6 month follow-up may confirm stability. IMPRESSION:
== END ==
PROVIDERS: Family Provider Family Medicine; PCP Family Medicine; Visit Provider Specialist
DX: G43.909 Migraine, unspecified, not intractable, without status migrainosus (principal); R00.0 Tachycardia, unspecified; M54.2 Cervicalgia; E04.9 Nontoxic goiter, unspecified
CPT/HCPCS: 70551

== ENCOUNTER → 2018-01-17 07:55 | Outpatient (CLI) | payer OTHER, SELFPAY ==
--- NOTE | 2018-01-17 07:57 | MR_ITS ---
MR venography head wo con CLINICAL INDICATION: Headache, dizziness, blurred vision ITS.REASON: migraine ORDERING PHYSICIAN: Ciara Valentin MD PATIENT AGE: 22 years Comparison: 01/11/2018 Routine MRV performed without contrast with 2-D fuxr-uy-hnlofp images and mip reformats FINDINGS: No evidence of venous sinus thrombosis. The transverse, sigmoid, and sagittal sinuses have an unremarkable appearance the straight sinus and vein of shannon have an unremarkable appearance IMPRESSION: Negative MRV
--- NOTE | 2018-01-17 07:57 | MR_ITS ---
MR angio head wo con HISTORY: Severe headache, dizziness and blurred vision ITS.REASON: migraine ORDERING PHYSICIAN: Ciara Valentin MD PATIENT AGE: 22 years Comparison: 01/11/2018 TECHNIQUE: 3-D nkqn-vk-ttothg images obtained without contrast with MIP reformats. FINDINGS: No aneurysm, arteriovenous malformation, or major intracranial occlusive process evident. IMPRESSION: Negative MRA of the brain
== END ==
PROVIDERS: Family Provider Family Medicine; PCP Family Medicine; Visit Provider Specialist
DX: G43.909 Migraine, unspecified, not intractable, without status migrainosus (principal); R00.0 Tachycardia, unspecified; M54.2 Cervicalgia; E04.9 Nontoxic goiter, unspecified
CPT/HCPCS: 70544

== ENCOUNTER → 2018-05-27 14:10 | Outpatient (CLI) | payer OTHER, SELFPAY | PROVIDERS: Visit Provider Emergency Medicine | DX: R35.0 Frequency of micturition (principal) | CPT/HCPCS: 87086; 87088; 87186 ==

== ENCOUNTER → 2020-08-01 18:02 | Outpatient (CLI) | payer OTHER, SELFPAY ==
[2020-08-01 18:26] LABS: Basophils # 0.1 K/mm3 (0-0.2); Basophils % 0.5 % (0.1-2.0); Eosinophils # 0.1 K/mm3 (0.0-0.4); Eosinophils % 1.3 % (0.1-12.0); Hematocrit 40.6 % (37.0-47.0); Hemoglobin 13.6 g/dL (12.2-16.2); Lymphocytes # 4.6 K/mm3 (0.7-4.5); Lymphocytes % 45.3 % (10-50); Mean Corpuscular HGB Conc 33.5 g/dL (31.8-35.4); Mean Corpuscular Hemoglobin 29.8 pg (27.0-31.2); Mean Corpuscular Volume 89.1 fl (81-99); Mean Platelet Volume 8.5 fl (7.4-10.4); Monocytes # 0.6 K/mm3 (0.1-1.0); Neutrophils # 4.7 K/mm3 (1.8-7.8); Neutrophils % 46.9 % (37.0-80.0); Platelet Count 463 K/mm3 (142-424); Red Blood Count 4.56 M/mm3 (4.20-5.40); Red Cell Distribution Width 13.3 % (11.5-17.5); White Blood Count 10.1 K/mm3 (4.8-10.8)
[2020-08-01 18:34] LABS: Alanine Aminotransferase 22 U/L (12-78); Albumin/Globulin Ratio 1.4 (1.1-1.8); Alkaline Phosphatase 93 U/L (38-126); Anion Gap 14.6 mEq/L (5-15); Aspartate Amino Transferase 30 U/L (14-36); Bilirubin,Total 0.5 mg/dl (0.2-1.3); Blood Urea Nitrogen 6 mg/dl (7-17); Calcium 9.9 mg/dl (8.4-10.2); Carbon Dioxide 23 mmol/L (22.0-30.0); Chloride 105 mmol/L (98-107); Chol/HDL Ratio 6.2 (1-3.5); Cholesterol 306 mg/dl (140-200); Estimated Glomerular Filt Rate 120 ml/min (>60); GFR (African American) 145 ML/MIN (>60); Globulin 3.5 g/dL (1.3-3.2); Glucose 74 mg/dl (74-100); HDL Cholesterol 49 mg/dl (40-60); Potassium 3.6 mmoL/L (3.5-5.1); Sodium 139 mmol/L (136-145); Total Protein,Serum 8.5 g/dl (6.3-8.2); Triglycerides 243 mg/dl (30-150); VLDL Cholesterol 49 mg/dL (0-40)
[2020-08-01 18:46] LABS: Direct LDL Cholesterol 206.82 mg/dL (100-129)
[2020-08-01 18:52] LABS: T4 (Thyroxine) 9.6 ug/dl (5.53-11.0)
[2020-08-01 19:06] LABS: Thyroid Stimulating Hormone 2.71 uIU/mL (0.465-4.68)
[2020-08-03 08:34] LABS: Triiodothyronine (T3) Total 162 ng/dL (71-180)
[2020-08-03 09:35] LABS: Thyroid Peroxidase Antibodies <9 IU/mL (0-34)
[2020-08-05 15:26] LABS: Thyroid Stimulating Immunoglob <0.10 IU/L (0.00-0.55)
== END ==
PROVIDERS: Visit Provider Physician Assistant
DX: E01.0 Iodine-deficiency related diffuse (endemic) goiter (principal); R63.5 Abnormal weight gain
CPT/HCPCS: 80053; 80061; 84436; 84443; 84445; 84480; 85025; 86376

== ENCOUNTER → 2020-09-24 11:52 | Outpatient (CLI) | payer OTHER, SELFPAY | PROVIDERS: PCP Physician Assistant; Visit Provider Physician Assistant | DX: R07.9 Chest pain, unspecified (principal); R00.0 Tachycardia, unspecified | CPT/HCPCS: 93225; 93226 ==

== ENCOUNTER → 2020-10-15 09:53 | Outpatient (CLI) | payer OTHER, SELFPAY ==
--- NOTE | 2020-10-15 09:54 | CA_ITS ---
APPROVED REPORT Exam: Exercise Treadmill Technologist: Ira Vincent, Ht: 5 ft 3 in Wt: 163 lbs BSA: 1.77 m2 HR: 86 bpm BP: 111/70 mmHg Indications: Chest pain Medical History Medications: vilazodone, lorazapem, doxepin, asa, aripiprazole Stress Test Details Test: Nick HR Resting HR: 106 bpm Max Heart Rate (APMHR): 193.677232 bpm Max HR Achieved: 194 bpm Target HR (85% APMHR): 164.166410 bpm % of APMHR: 100.52 Recovery HR: 169 bpm BP Resting BP: 111/70 mmHg Max BP: 178/75 mmHg Recovery BP: 174.0/79.0 mmHg ECG Resting ECG: NSR, incomplete RBBB Clinical Exercise duration: 09:32 min Highest Stage Achieved: Stage 4: 4.2 mph at 16% grade. Exercise capacity: 10.1 METs Stress ECG Conclusion No chest pain. No arrhythmia or ectopy. Normal ST response to exercise. Normal GXT. Test Summary REST . . . . . . . Sitting REST 03:15 0.0 0.0 106 . 111/ 70 . . Stage 1 01:00 10.0 1.7 126 . . . . Stage 1 02:00 10.0 1.7 138 . . . . Stage 1 03:00 10.0 1.7 136 . 142/ 78 . . Stage 2 01:00 12.0 2.5 149 . . . . Stage 2 02:00 12.0 2.5 154 . . . . Stage 2 03:00 12.0 2.5 162 . 162/ 76 . . Stage 3 01:00 14.0 3.4 171 . . . . Stage 3 02:00 14.0 3.4 181 . . . . Stage 3 03:00 14.0 3.4 185 . 178/ 75 . . Stage 4 00:32 16.0 4.2 191 . . . Stop exercise at 09:32 RECOVERY 01:00 0.0 0.0 169 . 174/ 75 . . RECOVERY 02:00 0.0 0.0 144 . 174/ 75 . . RECOVERY 03:00 0.0 0.0 124 . 159/ 72 . . RECOVERY 04:00 0.0 0.0 129 . 137/ 61 . . RECOVERY 05:00 0.0 0.0 124 . 124/ 60 . . RECOVERY 06:00 0.0 0.0 117 . 124/ 60 . . RECOVERY 07:00 0.0 0.0 122 . 124/ 60 . . RECOVERY 07:17 0.0 0.0 118 . 124/ 60 . . Electronically signed by : Dom Hanley, 10/15/2020 18:20:01
--- NOTE | 2020-10-15 09:54 | CA_ITS ---
APPROVED REPORT EXAM: Comprehensive 2D, Doppler, and color-flow Echocardiogram Mission Manager: Lu Gann RVT Ht: 5 ft 3 in Wt: 163lbs BSA: 1.77 BP: 118/70 mmHg Indications: CP,PALPS,SYNCOPE,TACHYCARDIA,ASTHMA 2D Dimensions LVOT 1.84 cm (M/F) 1.5-2.5 LA Volume 14.30 mL LA Volume Index 8.07 mL/m2 (M/F) 16-34 M-Mode Dimensions RVDd 1.92 cm (0.9-2.6) LA Diam 3.17 cm (1.9-4.0) LVDd 3.76 cm (3.5-5.7) Ao Diam 2.72 cm (2.0-3.7) LVDs 2.71 cm (3.5-5.7) IVSd 1.75 cm (0.6-1.1) PWd 0.55 cm (0.6-1.1) EF (Teich) 54.80% FS 27.90% EDV (Teich) 60.40 mL TAPSE 1.60 (<1.7) ESV (Teich) 27.30 mL LV Diastology MED E' 8.10 (< 7 cm/sec) LAT E' 9.40 (<10 cm/sec) Aortic Valve AO Peak GR. 4.90 mmHg Pulmonary Valve PV Peak Velocity 79.00 (50-150 cm/s) Left Ventricle Left atrium normal size, left ventricle is normal size, there is no concentric left ventricular hypertrophy, visually estimated ejection fraction 55% with no regional wall motion abnormality, diastolic parameters are within normal range. Right Ventricle Right atrium and right ventricle are normal size and contractility. Aortic Valve Aortic valve is normal, there is no aortic stenosis or aortic insufficiency. Mitral Valve Mitral valve grossly normal, there is trace mitral regurgitation. Tricuspid Valve Tricuspid grossly normal, there is trace tricuspid regurgitation, tricuspid regurgitation jet velocity is inadequate for calculation of the right ventricular systolic pressure. Pulmonic Valve Pulmonic valve is poorly visualized. Great Vessels Aortic root is normal size. Pericardium No significant pericardial effusion noted. Conclusion 1. Normal left ventricular size, preserved left ventricular systolic function, visually estimated ejection fraction 55% with no regional wall motion abnormality, diastolic parameters are within normal range. 2. Trace mitral and tricuspid regurgitation. 3. No significant pericardial effusion noted. Electronically signed by : Dom Hanley, 10/15/2020 19:03:25
== END ==
PROVIDERS: PCP Physician Assistant; Visit Provider Physician Assistant
DX: R07.9 Chest pain, unspecified (principal)
CPT/HCPCS: 93017; 93306

== ENCOUNTER → 2022-06-02 09:31 | Outpatient (CLI) | payer OTHER, SELFPAY ==
[2022-06-02 11:05] LABS: Basophils # 0.2 K/mm3 (0-0.2); Basophils % 1.4 % (0.1-2.0); Eosinophils # 0.2 K/mm3 (0.0-0.4); Eosinophils % 1.8 % (0.1-12.0); Hematocrit 43.2 % (37.0-47.0); Hemoglobin 14.1 g/dL (12.2-16.2); Lymphocytes # 3.5 K/mm3 (0.7-4.5); Lymphocytes % 29.4 % (10-50); Mean Corpuscular HGB Conc 32.6 g/dL (31.8-35.4); Mean Corpuscular Hemoglobin 29.8 pg (27.0-31.2); Mean Corpuscular Volume 91.3 fl (81-99); Mean Platelet Volume 8.4 fl (7.4-10.4); Monocytes # 0.6 K/mm3 (0.1-1.0); Monocytes % 5.1 % (1.7-9.3); Neutrophils # 7.5 K/mm3 (1.8-7.8); Neutrophils % 62.3 % (37.0-80.0); Platelet Count 443 K/mm3 (142-424); Red Blood Count 4.73 M/mm3 (4.20-5.40); Red Cell Distribution Width 13.7 % (11.5-17.5); White Blood Count 12.1 K/mm3 (4.8-10.8)
[2022-06-02 11:18] LABS: Alanine Aminotransferase 33 U/L (12-78); Albumin Level 4.6 g/dl (3.5-5.0); Albumin/Globulin Ratio 1.7 (1.1-1.8); Alkaline Phosphatase 108 U/L (38-126); Anion Gap 14.7 mEq/L (5-15); Aspartate Amino Transferase 31 U/L (14-36); Bilirubin,Total 0.5 mg/dl (0.2-1.3); Blood Urea Nitrogen 10 mg/dl (7-17); Calcium 9.4 mg/dl (8.4-10.2); Carbon Dioxide 25 mmol/L (22.0-30.0); Chloride 105 mmol/L (98-107); Cholesterol 254 mg/dl (140-200); Estimated Glomerular Filt Rate 119 ml/min (>60); GFR (African American) 144 ML/MIN (>60); Globulin 2.7 g/dL (1.3-3.2); Glucose 97 mg/dl (74-100); HDL Cholesterol 42 mg/dl (40-60); Potassium 4.7 mmoL/L (3.5-5.1); Sodium 140 mmol/L (136-145); Total Protein,Serum 7.3 g/dl (6.3-8.2); Triglycerides 177 mg/dl (30-150); VLDL Cholesterol 35 mg/dL (0-40)
[2022-06-02 11:29] LABS: Direct LDL Cholesterol 182.94 mg/dL (100-129)
[2022-06-02 11:33] LABS: 25-OH Vitamin D, Total 17.9 ng/mL (30-100)
[2022-06-02 11:46] LABS: Thyroid Stimulating Hormone 1.34 uIU/mL (0.465-4.68)
[2022-06-02 13:09] LABS: Hemoglobin A1C 5.7 % (4.0-6.0)
== END ==
PROVIDERS: PCP Physician Assistant; Visit Provider Obstetrics & Gynecology
DX: R09.89 Other specified symptoms and signs involving the circulatory and respiratory systems (principal); F41.9 Anxiety disorder, unspecified; K21.9 Gastro-esophageal reflux disease without esophagitis; E78.5 Hyperlipidemia, unspecified; Z86.73 Personal history of transient ischemic attack (TIA), and cerebral infarction without residual deficits; E55.9 Vitamin D deficiency, unspecified
CPT/HCPCS: 36415; 80053; 80061; 82306; 83036; 84443; 85025

== ENCOUNTER 2022-06-16 15:01 | Emergency (ER) | payer OTHER, SELFPAY ==
[2022-06-16 15:10] VITALS: BP 142/91; PULSE 128; RESP 20; TEMP 36.9; O2SAT 99; BMI 33.6
[2022-06-16 15:20] LABS: Microscopic, Urine URINE MICROSCOPIC (MICROSCOPIC)
--- NOTE | 2022-06-16 15:22 | US_ITS ---
FINAL REPORT CLINICAL HISTORY: concern for cholecystitis FINDINGS: Ultrasound images of the right upper quadrant were obtained. The liver parenchyma is increased in echogenicity. The gallbladder is contracted with no visible gallstones. The common duct is normal. Limited images of the right kidney are unremarkable. IMPRESSION: Fatty liver. Reviewed, Interpreted and Dictated by Srinivasan Ocampo MD Transcribed by Juan Carlos Vidal Authenticated and [facility]
--- NOTE | 2022-06-16 15:23 | HMH.EDGENADL ---
Discharge Plan Disposition Patient Disposition: Home, Self-Care Condition: Fair Prescriptions Prescriptions: New ondansetron [ondansetron] 4 mg tablet,disintegrating 4 mg PO TIDP PRN (Reason: Nausea) Qty: 10 0RF No Action prenat.vits,tan,mpn-ruyt-kdphm Tablet 1 tab PO DAILY Qty: 30 11RF aripiprazole [Abilify] 10 mg tablet 10 mg PO QHS 90 Days Qty: 90 0RF Viibryd 40 mg tablet 40 mg PO DAILY 90 Days Qty: 90 0RF Rx Instructions: must administer with a meal/food ergocalciferol (vitamin D2) 1,250 mcg (50,000 unit) capsule 50,000 unit PO QWEEK 90 Days Qty: 14 3RF Referrals Follow up/Referrals: Jinny Talley PA [Primary Care Provider] - See instructions Carlos Tidwell MD [Staff Physician] - See instructions Clinical Impressions Clinical Impression: Abdominal pain, RUQ Instructions Patient Instructions: DI for Acute Abdominal Pain Discharge ED Provider: Cooper Coronado General Adult HPI General Chief complaint: Abdominal Pain Stated complaint: Abd pain Time Seen by Provider: 06/16/22 15:15 Mode of Arrival: Ambulatory Source of Information: Patient Limitations: No Limitations Description of Symptoms (Recalled from ER Triage Doc. by RN): pt to ed c/o bilateral upper quad abd pain. pt states she has had diarrhea and nausea associated. History of Present Illness HPI narrative: Patient is a 27-year-old female with past medical history of depression, hyperlipidemia, GERD who presents with right upper quadrant and epigastric pain. She says that over the last couple of days she has been having intermittent persistent right upper quadrant pain. She says that it is worse when she does eat. She has been having some diarrhea during this time and is also had some nausea and vomiting. She describes her vomiting is nonbilious/nonbloody. Denies any fever or chills. Related Data Previous Rx's Medication Instructions Recorded aripiprazole 10 mg tablet (Abilify) 10 mg PO QHS 90 days #90 tabs 04/08/22 vilazodone 40 mg tablet (Viibryd) 40 mg PO DAILY 90 days #90 tabs 04/08/22 prenat.vits,tan,esw-dnwz-nwzxy 1 tab PO DAILY #30 tabs 06/01/22 ergocalciferol (vitamin D2) 1,250 50,000 unit PO QWEEK 90 days #14 06/10/22 mcg (50,000 unit) capsule caps ondansetron 4 mg disintegrating 4 mg PO TIDP PRN Nausea #10 tabs 06/16/22 tablet Allergies Allergy/AdvReac Type Severity Reaction Status Date / Time nickel [NICKEL] Allergy Unknown Verified 06/10/22 11:49 [facility] Disclaimer: The information contained in this section may have been updated after the patient was seen, as this information can be updated by other users. Medical History (Updated 06/16/22 @ 17:21 by Cooper Coronado MD) Anxiety delivery delivered Chest pain Dyspnea Gastroesophageal reflux disease Generalized anxiety disorder History of pre-eclampsia History of TIA (transient ischemic attack) HLD (hyperlipidemia) Migraines Obesity (BMI 30.0-34.9) Recurrent major depression resistant to treatment Tachycardia Surgical History History of renal stent Social History Smoking Status: Never smoker alcohol intake: current counseling provided: none substance use type: denies use current occupational status: employed Travel in the last 8 weeks: None household members: family housing: house number of children: 1 ROS Obtained: Yes All systems reviewed & no additional complaints except as documented A 14 point review of system was obtained and otherwise negative except per HPI Physical Exam General General appearance: alert and in no apparent distress Head Head exam: atraumatic, normocephalic and normal inspection Eye Eye exam: Present normal appearance, PERRL and EOMI ENT ENT exam: Present normal exam, normal oropharynx, mucous membranes moist and normal external ear exam Neck
[2022-06-16 15:26] LABS: Basophils # 0.2 K/mm3 (0-0.2); Basophils % 1.7 % (0.1-2.0); Eosinophils # 0.2 K/mm3 (0.0-0.4); Eosinophils % 1.8 % (0.1-12.0); Hematocrit 40.5 % (37.0-47.0); Hemoglobin 13.6 g/dL (12.2-16.2); Lymphocytes # 3.2 K/mm3 (0.7-4.5); Lymphocytes % 29.3 % (10-50); Mean Corpuscular HGB Conc 33.5 g/dL (31.8-35.4); Mean Corpuscular Hemoglobin 29.5 pg (27.0-31.2); Mean Corpuscular Volume 88.1 fl (81-99); Mean Platelet Volume 7.7 fl (7.4-10.4); Monocytes # 0.4 K/mm3 (0.1-1.0); Monocytes % 3.6 % (1.7-9.3); Neutrophils # 6.9 K/mm3 (1.8-7.8); Neutrophils % 63.6 % (37.0-80.0); Platelet Count 464 K/mm3 (142-424); Red Cell Distribution Width 13.7 % (11.5-17.5); White Blood Count 10.8 K/mm3 (4.8-10.8)
[2022-06-16 15:30] VITALS: BP 136/88; PULSE 104; RESP 20; O2SAT 98
[2022-06-16 15:30] LABS: Appearance,Urine CLEAR (Clear); Bilirubin,Urine Negative (Negative); Blood, Urine 1+ (Negative); Color,Urine YELLOW (Yellow); Glucose,Urine (UA) Negative (Negative); Ketones,Urine TRACE (Negative); Leukocyte Esterase,Urine Negative (Negative); Nitrate,Urine Negative (Negative); Protein,Urine Negative (Negative); Specific Gravity, Urine >= 1.030 (1.005-1.030); Urobilinogen,Urine 0.2 EU/dl (0.2)
[2022-06-16 15:38] LABS: Urine Pregnancy, HCG Qual. Negative (Negative)
--- NOTE | 2022-06-16 15:40 | PC.NURSE ---
PT TO US
[2022-06-16 15:47] LABS: Chloride 107 mmol/L (98-107); Potassium 4.1 mmoL/L (3.5-5.1); Sodium 144 mmol/L (136-145)
[2022-06-16 15:50] LABS: Alanine Aminotransferase 55 U/L (12-78); Albumin Level 4.3 g/dl (3.5-5.0); Albumin/Globulin Ratio 1.3 (1.1-1.8); Alkaline Phosphatase 98 U/L (38-126); Anion Gap 12.1 mEq/L (5-15); Aspartate Amino Transferase 45 U/L (14-36); Bacteria,Urine 1+ /lpf; Bilirubin,Total 0.5 mg/dl (0.2-1.3); Blood Urea Nitrogen 5 mg/dl (7-17); Calcium 8.9 mg/dl (8.4-10.2); Carbon Dioxide 29 mmol/L (22.0-30.0); Creatinine Clearance Estimated 141 mL/min (50-200); Estimated Glomerular Filt Rate 85 ml/min (>60); GFR (African American) 103 ML/MIN (>60); Globulin 3.3 g/dL (1.3-3.2); Glucose 90 mg/dl (74-100); Lipase 125 U/L (23-300); RBC,Urine Occasional #/hpf (0-3); Total Protein,Serum 7.6 g/dl (6.3-8.2)
--- NOTE | 2022-06-16 16:25 | PC.NURSE ---
back from US
[2022-06-16 17:34] VITALS: BP 109/69; PULSE 96; RESP 18; TEMP 36.8; O2SAT 97
== END 2022-06-16 17:35 | disposition home or self-care (01) ==
PROVIDERS: Emergency Provider Student in an Organized Health Care Education/Training Program; PCP Physician Assistant
DX: R10.11 Right upper quadrant pain (principal); R10.13 Epigastric pain; K21.9 Gastro-esophageal reflux disease without esophagitis; E78.5 Hyperlipidemia, unspecified; F33.9 Major depressive disorder, recurrent, unspecified; F41.1 Generalized anxiety disorder; Z86.73 Personal history of transient ischemic attack (TIA), and cerebral infarction without residual deficits; Z96.0 Presence of urogenital implants
CPT/HCPCS: 76705; 80053; 81001; 81025; 83690; 85025; 96374; 99285; J2405

== ENCOUNTER → 2022-10-07 10:11 | Outpatient (CLI) | payer OTHER, SELFPAY ==
[2022-10-07 10:46] LABS: Basophils # 0.1 K/mm3 (0-0.2); Basophils % 0.8 % (0.1-2.0); Eosinophils # 0.1 K/mm3 (0.0-0.4); Eosinophils % 1.4 % (0.1-12.0); Hematocrit 39.9 % (37.0-47.0); Hemoglobin 13.3 g/dL (12.2-16.2); Lymphocytes # 3.2 K/mm3 (0.7-4.5); Lymphocytes % 33.8 % (10-50); Mean Corpuscular HGB Conc 33.2 g/dL (31.8-35.4); Mean Corpuscular Hemoglobin 29.5 pg (27.0-31.2); Mean Corpuscular Volume 88.9 fl (81-99); Mean Platelet Volume 7.8 fl (7.4-10.4); Monocytes # 0.5 K/mm3 (0.1-1.0); Monocytes % 5.7 % (1.7-9.3); Neutrophils # 5.4 K/mm3 (1.8-7.8); Neutrophils % 58.3 % (37.0-80.0); Platelet Count 392 K/mm3 (142-424); Red Blood Count 4.49 M/mm3 (4.20-5.40); Red Cell Distribution Width 13.4 % (11.5-17.5); White Blood Count 9.3 K/mm3 (4.8-10.8)
[2022-10-07 11:07] LABS: Chloride 100 mmol/L (98-107)
[2022-10-07 11:08] LABS: Potassium 4.5 mmoL/L (3.5-5.1); Sodium 139 mmol/L (136-145)
[2022-10-07 11:10] LABS: Alanine Aminotransferase 30 U/L (12-78); Alkaline Phosphatase 112 U/L (38-126); Anion Gap 18.5 mEq/L (5-15); Aspartate Amino Transferase 28 U/L (14-36); Bilirubin,Total 0.3 mg/dl (0.2-1.3); Blood Urea Nitrogen 7 mg/dl (7-17); Carbon Dioxide 25 mmol/L (22.0-30.0); Estimated Glomerular Filt Rate 118 ml/min (>60); GFR (African American) 143 ML/MIN (>60); Iron 65 ug/dL (37-170)
[2022-10-07 11:11] LABS: Albumin Level 4.3 g/dl (3.5-5.0); Albumin/Globulin Ratio 1.6 (1.1-1.8); Calcium 9.6 mg/dl (8.4-10.2); Globulin 2.7 g/dL (1.3-3.2); Glucose 78 mg/dl (74-100)
[2022-10-07 11:20] LABS: Total Iron Binding Capacity 462 ug/dL (265-497)
[2022-10-07 12:01] LABS: Vitamin B12 542 pg/mL (239-931)
[2022-10-07 13:02] LABS: Hemoglobin A1C 5.5 % (4.0-6.0)
[2022-10-15 03:13] LABS: 1,25 Dihydroxy Vitamin D 59 pg/mL (.); 1,25-Dihydroxy, Vitamin D-2 11 pg/mL (.); 1,25-Dihydroxy, Vitamin D-3 48 pg/mL (.)
== END ==
PROVIDERS: PCP Physician Assistant; Visit Provider Nurse Practitioner Psychiatric/Mental Health
DX: Z00.00 Encounter for general adult medical examination without abnormal findings (principal); Z79.899 Other long term (current) drug therapy; R53.83 Other fatigue; E66.9 Obesity, unspecified; Z68.33 Body mass index [BMI] 33.0-33.9, adult; Z86.39 Personal history of other endocrine, nutritional and metabolic disease
CPT/HCPCS: 36415; 80053; 82607; 82652; 83036; 83540; 83550; 85025

== ENCOUNTER 2023-03-15 15:04 | Emergency (ER) | payer OTHER, SELFPAY ==
[2023-03-15 15:19] VITALS: BP 138/98; PULSE 115; RESP 18; TEMP 36.8; O2SAT 98; BMI 31.9
[2023-03-15 15:30] VITALS: BP 106/71; PULSE 102; RESP 18; O2SAT 96
[2023-03-15 16:15] LABS: Basophils # 0.1 K/mm3 (0-0.2); Basophils % 1.1 % (0.1-2.0); Chloride 102 mmol/L (98-107); Eosinophils # 0.2 K/mm3 (0.0-0.4); Eosinophils % 2.9 % (0.1-12.0); Hematocrit 46.2 % (37.0-47.0); Hemoglobin 16.4 g/dL (12.2-16.2); Lymphocytes % 33.2 % (10-50); Mean Corpuscular HGB Conc 35.4 g/dL (31.8-35.4); Mean Corpuscular Hemoglobin 31.1 pg (27.0-31.2); Mean Corpuscular Volume 87.9 fl (81-99); Mean Platelet Volume 7.8 fl (7.4-10.4); Monocytes # 0.5 K/mm3 (0.1-1.0); Monocytes % 8.6 % (1.7-9.3); Neutrophils # 3.2 K/mm3 (1.8-7.8); Neutrophils % 54.1 % (37.0-80.0); Platelet Count 319 K/mm3 (142-424); Potassium 4.1 mmoL/L (3.5-5.1); Red Blood Count 5.26 M/mm3 (4.20-5.40); Red Cell Distribution Width 13.1 % (11.5-17.5); Sodium 136 mmol/L (136-145); White Blood Count 5.9 K/mm3 (4.8-10.8)
[2023-03-15 16:18] LABS: Alanine Aminotransferase 41 U/L (12-78); Albumin Level 4.4 g/dl (3.5-5.0); Albumin/Globulin Ratio 1.3 (1.1-1.8); Alkaline Phosphatase 107 U/L (38-126); Anion Gap 12.1 mEq/L (5-15); Aspartate Amino Transferase 48 U/L (14-36); Bilirubin,Total 0.5 mg/dl (0.2-1.3); Blood Urea Nitrogen 9 mg/dl (7-17); Carbon Dioxide 26 mmol/L (22.0-30.0); Creatinine Clearance Estimated 119 mL/min (50-200); Estimated Glomerular Filt Rate 74 ml/min (>60); GFR (African American) 90 ML/MIN (>60); Globulin 3.5 g/dL (1.3-3.2); Glucose 91 mg/dl (74-100); Total Protein,Serum 7.9 g/dl (6.3-8.2)
--- NOTE | 2023-03-15 16:18 | HMH.EDGENADL ---
Discharge Plan Disposition Patient Disposition: Home, Self-Care Chief Complaint: Nausea/Vomiting/Diarrhea Referrals Follow up/Referrals: Jinny Talley PA [Primary Care Provider] - See instructions Activity Restrictions/Add. Instructions Additional Instructions/Restrictions: At this time it was felt you are safe to be discharged home. If new or worsening symptoms please do not hesitate to return the emergency department. Please follow-up with your family doctor in the coming days for possible stool sample. Clinical Impressions Clinical Impression: Diarrhea, Headache, Myalgia Discharge ED Provider: Manuel Burton General Adult HPI General Chief complaint: Nausea/Vomiting/Diarrhea Stated complaint: vomiting, dirrehea, fever/chills Time Seen by Provider: 03/15/23 16:00 Mode of Arrival: Ambulatory Limitations: No Limitations Description of Symptoms (Recalled from ER Triage Doc. by RN): Patient reports nausea that started wednesday and fever that started wednesday. Patient reports diarrhea daily. Patient reports she has only vomited a couple of times but not been able to keep anything down orally, pt reports she has lost 8lbs since wednesday. History of Present Illness HPI narrative: Patient is a 27-year-old female with no pertinent past medical history who presents emergency department for evaluation of multiple complaints. Patient had nausea and diarrhea, multiple episodes a day, stool is dark, holocranial headache since Wednesday. No sick contacts. No other acute complaints at this time. Patient has a remote history of receiving endoscopies and colonoscopies in childhood of undetermined significance. Related Data Allergies Allergy/AdvReac Type Severity Reaction Status Date / Time nickel [NICKEL] Allergy Unknown Verified 03/15/23 15:28 [facility] Disclaimer: The information contained in this section may have been updated after the patient was seen, as this information can be updated by other users. Medical History (Updated 03/15/23 @ 18:45 by Manuel Burton MD) Anxiety delivery delivered Chest pain Dyspnea Gastroesophageal reflux disease Generalized anxiety disorder History of pre-eclampsia History of TIA (transient ischemic attack) HLD (hyperlipidemia) Impacted cerumen of left ear Migraines Obesity (BMI 30.0-34.9) Recurrent major depression resistant to treatment Tachycardia Thyroid nodule Surgical History History of renal stent Social History (Reviewed 06/06/23 @ 09:51 by UMESH Goodrich Smoking Status: Never smoker alcohol intake: current counseling provided: none substance use type: denies use current occupational status: employed Travel in the last 8 weeks: None household members: family housing: house number of children: 1 ROS Obtained: Yes Systems reviewed as appropriate & no additional complaints except as documented Physical Exam General General appearance: alert and in no apparent distress Head Head exam: atraumatic and normocephalic Eye Eye exam: Present PERRL and EOMI ENT ENT exam: Present mucous membranes moist Neck Neck exam: Present normal inspection Chest Chest inspection: Present normal inspection and symmetric chest wall rise Respiratory Respiratory exam: Present normal lung sounds bilaterally; Absent respiratory distress Cardiovascular Cardiovascular exam: Present normal rhythm and tachycardia Abdominal Exam Abdominal exam: Present soft; Absent tenderness, guarding or rebound Extremities Exam Extremities exam: Present normal inspection Neurological Exam Neurological exam: Present alert Psychiatric Psychiatric exam: Present normal affect Skin Skin exam: Present warm and dry Medical Decision Making Sky Inquiry Pt receiving controlled substance: No Vital Signs: 03/15/23 15:19 03/15/23 15:30 03/15/23 16:37 Temperature 98.3 F Temperature Source Oral Pulse Rate
[2023-03-15 16:24] LABS: Microscopic, Urine URINE MICROSCOPIC (MICROSCOPIC)
[2023-03-15 16:28] LABS: Appearance,Urine CLEAR (Clear); Blood, Urine Negative (Negative); Color,Urine YELLOW (Yellow); Glucose,Urine (UA) Negative (Negative); Ketones,Urine TRACE (Negative); Leukocyte Esterase,Urine Negative (Negative); Nitrate,Urine Negative (Negative); Protein,Urine 1+ (Negative); Specific Gravity, Urine >= 1.030 (1.005-1.030)
[2023-03-15 16:29] LABS: Urine Pregnancy, HCG Qual. Negative (Negative)
[2023-03-15 16:33] LABS: Bilirubin,Urine 1+ (Negative)
[2023-03-15 16:34] LABS: Coronavirus 19, PCR Not Detected (NotDetected); Influenza A, PCR Not Detected (NotDetected); Influenza B, PCR Not Detected (NotDetected)
--- NOTE | 2023-03-15 16:36 | PC.NURSE ---
Pt unable to provide stool for sample at this time
[2023-03-15 16:37] VITALS: BP 110/73; PULSE 89; RESP 20; O2SAT 98
[2023-03-15 16:40] LABS: Squamous Epithelial Cell,Urine Occasional #/hpf (0-5)
[2023-03-15 17:00] VITALS: BP 116/72; PULSE 87; RESP 20; O2SAT 98
--- NOTE | 2023-03-15 17:08 | PC.NURSE ---
Rounded on pt. Advised she was still nauseous. Dr. Burton made aware.
[2023-03-15 17:30] VITALS: BP 115/72; PULSE 94; RESP 20; O2SAT 97
[2023-03-15 18:46] VITALS: BP 118/80; PULSE 84; RESP 20; TEMP 36.8; O2SAT 97
== END 2023-03-15 18:48 | disposition home or self-care (01) ==
PROVIDERS: Emergency Provider Emergency Medicine; PCP Physician Assistant
DX: R19.7 Diarrhea, unspecified (principal); R51.9 Headache, unspecified; R11.10 Vomiting, unspecified; K21.9 Gastro-esophageal reflux disease without esophagitis; E78.5 Hyperlipidemia, unspecified; E66.9 Obesity, unspecified; F41.1 Generalized anxiety disorder; F33.9 Major depressive disorder, recurrent, unspecified
CPT/HCPCS: 80053; 81001; 81025; 85025; 87636; 96361; 96374; 96375; 99284; J2405

== ENCOUNTER 2023-04-21 17:52 | Emergency (ER) | payer OTHER, SELFPAY ==
[2023-04-21 18:55] VITALS: BP 139/87; PULSE 81; RESP 18; TEMP 37.3; O2SAT 97; BMI 32.1
--- NOTE | 2023-04-21 19:21 | EXP.UTC ---
Discharge Plan Disposition Patient Disposition: Home, Self-Care Condition: Good Prescriptions Prescriptions: New amoxicillin 500 mg capsule 500 mg PO TID 10 Days Qty: 30 0RF pseudoephedrine HCl [Sudafed 12 Hour] 120 mg tablet extended release 120 mg PO Q12H PRN (Reason: nasal congestion) Qty: 20 0RF Referrals Follow up/Referrals: Jinny Talley PA [Primary Care Provider] - See instructions Activity Restrictions/Add. Instructions Additional Instructions/Restrictions: Take medication as prescribed Follow up with your Family Doctor if no improvement or any worsening of symptoms Return if needed Straight to Clinical Impressions Clinical Impression: Otitis media Qualifiers: Otitis media type: unspecified Laterality: right Qualified Code(s): H66.91 - Otitis media, unspecified, right ear Instructions Patient Instructions: Middle Ear Infection, Amoxicillin, Pseudoephedrine Discharge ED Provider: Ira Nicolas [facility] General Stated complaint: right ear pain Mode of Arrival: Ambulatory Source of Information: Patient Limitations: No Limitations Time Seen by Provider: 04/21/23 19:21 Description of Symptoms (Recalled from Triage Doc. by RN): PATIENT C/O RIGHT EAR AND NECK PAIN X 2 DAYS HEENT Symptoms (Recalled from RN notes): Yes Resp Symptoms (Recalled from RN notes): No Skin Symptoms (Recalled from RN notes): No MS Symptoms (Recalled from RN notes): No Functional Status (Recalled from RN notes): WNL History of Present Illness Provider Complaint: Patient states that she has been having pain in her right ear for several days that has continued to get worse and causing pain down in her neck just below her ear States that this evening it was hurting worse so she came in to get checked Related Data Previous Rx's Medication Instructions Recorded amoxicillin 500 mg capsule 500 mg PO TID 10 days #30 caps 04/21/23 pseudoephedrine HCl 120 mg 120 mg PO Q12H PRN nasal 04/21/23 tablet,extended release (Sudafed congestion #20 tabs 12 Hour) Allergies Allergy/AdvReac Type Severity Reaction Status Date / Time nickel [NICKEL] Allergy Unknown Verified 03/15/23 15:28 Worker's Comp Is this a Worker's Comp case?: No [facility] Disclaimer: The information contained in this section may have been updated after the patient was seen, as this information can be updated by other users. Medical History (Updated 04/21/23 @ 19:31 by Ira Nicolas APRN) Anxiety delivery delivered Chest pain Dyspnea Gastroesophageal reflux disease Generalized anxiety disorder History of pre-eclampsia History of TIA (transient ischemic attack) HLD (hyperlipidemia) Impacted cerumen of left ear Migraines Obesity (BMI 30.0-34.9) Recurrent major depression resistant to treatment Tachycardia Thyroid nodule Surgical History History of renal stent Social History Smoking Status: Never smoker alcohol intake: current counseling provided: none substance use type: denies use current occupational status: employed Travel in the last 8 weeks: None household members: family housing: house number of children: 1 ROS Obtained: Yes All systems reviewed & no additional complaints except as documented and Yes Systems reviewed as appropriate & no additional complaints except as documented Constitutional Constitutional: Reports system reviewed and no additional complaints, except as documented and Reports as per HPI ENT Ears, Nose, Mouth, and Throat: Reports system reviewed and no additional complaints, except as documented, Reports as per HPI and Reports otalgia (hurts from ear down into neck area) Cardiovascular Cardiovascular: Reports system reviewed and no additional complaints, except as documented and Reports as per HPI Respiratory Respiratory: Reports system reviewed and no additional complaints,
[2023-04-21 19:36] VITALS: BP 139/87; PULSE 81; RESP 18; TEMP 37.3; O2SAT 97
== END 2023-04-21 19:38 | disposition home or self-care (01) ==
PROVIDERS: Emergency Provider Nurse Practitioner; PCP Physician Assistant
DX: H66.91 Otitis media, unspecified, right ear (principal); M54.2 Cervicalgia; K21.9 Gastro-esophageal reflux disease without esophagitis; E78.5 Hyperlipidemia, unspecified
CPT/HCPCS: 99204; 99212; G0463

== ENCOUNTER 2023-08-12 06:47 | Emergency (ER) | payer SELFPAY ==
[2023-08-12] VITALS (9 sets, daily range): BP systolic 113–167; BP diastolic 69–106; PULSE 62–131; RESP 12–17; TEMP 36.7; O2SAT 95–98; BMI 30.6
--- NOTE | 2023-08-12 06:48 | ECG_ITS ---
APPROVED REPORT Exam: Resting ECG HR:139 bpm ECG Measurements Heart Rate 139 AXES FL 146 P 69 QRSd 99 QRS 82 QT 343 T 53 QTc 424 Conclusion SINUS TACHYCARDIA INCOMPLETE RIGHT BUNDLE BRANCH BLOCK Electronically signed by : AIDE POWER, 08/12/2023 14:27:52
--- NOTE | 2023-08-12 06:54 | XR_ITS ---
FINAL REPORT TECHNIQUE: Single view chest CLINICAL HISTORY: palp, cp FINDINGS: A single view of the chest was obtained. The heart and mediastinum are within normal limits. The lungs are clear. There is no pneumothorax. Osseous structures are unremarkable. IMPRESSION: No acute cardiopulmonary process. Reviewed, Interpreted and Dictated by Rodo Crouch III, MD Transcribed by Gauri Ram Authenticated and [facility]
[2023-08-12 07:04] LABS: Basophils # 0.2 K/mm3 (0-0.2); Eosinophils # 0.1 K/mm3 (0.0-0.4); Eosinophils % 1.5 % (0.1-12.0); Hematocrit 44.4 % (37.0-47.0); Lymphocytes # 4.5 K/mm3 (0.7-4.5); Lymphocytes % 49.3 % (10-50); Mean Corpuscular HGB Conc 33.7 g/dL (31.8-35.4); Mean Corpuscular Hemoglobin 30.9 pg (27.0-31.2); Mean Corpuscular Volume 91.7 fl (81-99); Mean Platelet Volume 8.4 fl (7.4-10.4); Monocytes # 0.4 K/mm3 (0.1-1.0); Monocytes % 4.3 % (1.7-9.3); Neutrophils # 3.9 K/mm3 (1.8-7.8); Neutrophils % 42.9 % (37.0-80.0); Platelet Count 408 K/mm3 (142-424); Red Blood Count 4.84 M/mm3 (4.20-5.40); Red Cell Distribution Width 13.1 % (11.5-17.5); White Blood Count 9.2 K/mm3 (4.8-10.8)
--- NOTE | 2023-08-12 07:05 | ED_ITS ---
Discharge Plan Disposition Patient Disposition: Home, Self-Care Chief Complaint: Chest Pain Prescriptions Prescriptions: No Action No Known Home Medications Referrals Follow up/Referrals: Provider,Referral, [Referring] - See instructions Activity Restrictions/Add. Instructions Additional Instructions/Restrictions: Take Tylenol 1000 mg every 6 hours (4 times daily) and ibuprofen 400 mg every 6 hours (4 times daily) as needed with food and water to prevent GI upset and kidney damage. Call your family doctor to establish care for this visit to the emergency department and schedule follow-up within 48 hours to ensure improvement. If you have any worsening of your condition or any other concerning signs or symptoms, return to the emergency department or your primary care doctor for further evaluation. Clinical Impressions Clinical Impression: Pleurisy, Acute chest wall pain Discharge ED Provider: Gregory Monsalve General Chief Complaint: Chest Pain Stated Complaint: CP Time Seen by Provider: 08/12/23 06:53 Mode of Arrival: Family Vehicle Source of Information: Patient Limitations: No Limitations Description of Symptoms (Recalled from ER Triage Doc. by RN): left anterior chest wall pain with radiation up into left neck and down into left arm. pt reports it began yesterday and has had nausea, shortness of air, intermittent diaphoresis. NKA. Previous bouts of pain in the past;patient was seen by cards prior to this visit. History of Present Illness HPI narrative: 28-year-old female no relevant medical history presenting with palpitations and chest pain. Patient states her symptoms started yesterday, 08/10. Intermittent, sharp, nonexertional. Made better with sitting up, made worse with lying flat and lying on her left side. Chest pain is primarily left-sided lower chest wall in the midaxillary line, does not radiate, but feels as if her neck and face hurt at this point. This morning, 08/11, pain woke her up from sleep and she became concerned, so came to the emergency department. Intermittent nausea and shortness of breath. No fevers or chills, recent illness, lower extremity swelling, PND, orthopnea, recent travel history, history of DVT or PE, or any other concerns. Please note that above description of symptoms, in this electronic medical record under categorization of recalled from ER triage doctor by RN are reflective of an initial nursing assessment, however, is not reflective of my full history and physical exam that was personally taken and clarified. Consequentially, this preceding description of symptoms, which may include the patient's categorized chief complaint in the EMR, do not reflect my personal clinical impression, and the ultimate description of history of present illness and patient stated complaints should be deferred to this section of the note. Unless stated otherwise or congruent with this section of the note, additional signs, symptoms, or incongruence should be interpreted as inaccurate with my clinical impression. Related Data Home Medications Medication Instructions Recorded Confirmed No Known Home Medications 08/12/23 08/12/23 Allergies Allergy/AdvReac Type Severity Reaction Status Date / Time nickel [NICKEL] Allergy Unknown Verified 03/15/23 15:28 [facility] Disclaimer: The information contained in this section may have been updated after the patient was seen, as this information can be updated by other users. Medical History (Updated 08/12/23 @ 09:43 by Gregory Monsalve MD) Impacted cerumen of left ear Thyroid nodule Obesity (BMI 30.0-34.9) History of pre-eclampsia Migraines delivery delivered Generalized anxiety disorder Recurrent major depression resistant to treatment Gastroesophageal reflux disease HLD (hyperlipidemia) Dyspnea Chest pain Anxiety Tachycardia History of TIA (transient ischemic attack) Surgical History History of renal stent Social History Smoking Status: Unknown if ever smoked alcohol intake: current counseling provided: none substance use type: denies use current occupational status: employed Travel in the last 8 weeks: None household members: family housing: house number of children: 1 ROS Obtained: Yes All systems reviewed & no additional complaints except as documented Physical Exam General General appearance: alert and anxious Neck Neck exam: Present trachea midline and other (No obvious JVD) Chest Chest inspection: Present normal inspection, symmetric chest wall rise and tenderness (Left lower chest wall laterally) Respiratory Respiratory exam: Present normal lung sounds bilaterally; Absent respiratory distress, wheezes, stridor, accessory muscle use or prolonged expiratory phase Cardiovascular Cardiovascular exam: Present normal rhythm and tachycardia Extremities Exam Extremities exam: Absent edema Neurological Exam Neurological exam: Present alert, oriented X3 and CN II-XII intact Skin Skin exam: Present warm and dry; Absent cyanosis, diaphoresis or pallor HEART Score HEART Score HEART Score assessment performed?: Yes History (anamnesis): Slightly suspicious ECG: Non-specific disturbance Age: <45 years Risk factors: No known risk factors Troponin: </= normal limit HEART Score: 1 Procedures Limited Ultrasound Indication:: Limited cardiac ultrasound Indication: Chest pain Identified cardiac views: -Cardiac parasternal long axis -Cardiac parasternal short axis Findings: -Cardiac activity present -Gross wall motion normal -Pericardial effusion absent -Right heart strain absent Impression: -Normal cardiac ultrasound Images were saved to permanent archive The study was technically adequate CPT: 03761 This study was performed by me, and I personally interpreted all images/videos. Based on my clinical judgement, these images were adequate and not necessitate further imaging. Critical Care Critical Care Time Critical Care Time: No Medical Decision Making Medical Records Medical records reviewed: Yes I reviewed the patient's medical records. Sky Inquiry Pt receiving controlled substance: No Sky was queried for this patient: No Vital Signs Vital Signs: 08/12/23 06:48 08/12/23 06:53 08/12/23 07:00 Temperature 98.0 F Temperature Source Temporal Artery Scan Pulse Rate 131 H 107 H Pulse Rate [Right Brachial] 131 H Respiratory Rate 16 12 Blood Pressure 147/95 H Blood Pressure [Right Arm] 167/106 H Blood Pressure Mean [Right Arm] 126 Blood Pressure Source [Right Arm] Automatic Cuff Blood Pressure Position [Right Arm] Sitting 02 Sat by Pulse Oximetry 97 98 Oxygen Delivery Method Room Air Room Air 08/12/23 07:30 08/12/23 08:00 08/12/23 08:30 Temperature Temperature Source Pulse Rate 95 H 75 100 H Pulse Rate [Right Brachial] Respiratory Rate 17 12 15 Blood Pressure 128/87 116/69 123/86 Blood Pressure [Right Arm] Blood Pressure Mean [Right Arm] Blood Pressure Source [Right Arm] Blood Pressure Position [Right Arm] 02 Sat by Pulse Oximetry 96 98 98 Oxygen Delivery Method Room Air Room Air Room Air 08/12/23 09:00 Temperature Temperature Source Pulse Rate 70 Pulse Rate [Right Brachial] Respiratory Rate 14 Blood Pressure 125/84 Blood Pressure [Right Arm] Blood Pressure Mean [Right Arm] Blood Pressure Source [Right Arm] Blood Pressure Position [Right Arm] 02 Sat by Pulse Oximetry 95 Oxygen Delivery Method Lab Data Labs: Lab Results 08/12/23 06:55: VBG pH 7.46 H, VBG pCO2 34.5 L, VBG pO2 72.9 H, VBG HCO3 23.9, VBG Total CO2 24.9, VBG O2 Saturation 95.3 H, VBG Base Excess 0.0, VBG Lactic Acid 2.4 H 08/12/23 06:56: WBC 9.2, RBC 4.84, Hgb 15.0, Hct 44.4, MCV 91.7, MCH 30.9, MCHC 33.7, RDW 13.1, Plt Count 408, MPV 8.4, Neut % (Auto) 42.9, Lymph % (Auto) 49.3, [place] % (Auto) 4.3, Eos % (Auto) 1.5, Baso % (Auto) 2.0, Neut # (Auto) 3.9, Lymph # (Auto) 4.5, [place] # (Auto) 0.4, Eos # (Auto) 0.1, Baso # (Auto) 0.2, D-Dimer 0.26, Sodium 137, Potassium 4.2, Chloride 105, Carbon Dioxide 22, Anion Gap 14.2, BUN 11, Creatinine 0.70, Estimated Creat Clear 146, Estimated GFR 98, Est GFR ( Amer) 119, Glucose 107 H, Calcium 9.5, Magnesium 1.8, Total Bilirubin 0.6, AST 40 H, ALT 34, Alkaline Phosphatase 103, Troponin I < 0.01, NT-Pro-B Natriuret Pep < 20.0, Total Protein 7.7, Albumin 4.5, Globulin 3.2, Albumin/Globulin Ratio 1.4, TSH 6.12 H, Thyroxine (T4) 11.6 H, HCG, Quant < 2 08/12/23 08:36: Troponin I < 0.01 08/12/23 06:56 08/12/23 06:56 Response Orders (Tests/Meds): ED MEDICATIONS Discontinued Medications Generic Name Dose Route Start Last Admin Trade Name Freq PRN Reason Stop Dose Admin Acetaminophen 1,000 mg 08/12/23 07:06 08/12/23 07:29 Acetaminophen 1,000mg/100ml Vial IV 08/12/23 07:07 1,000 mg ONCE ONE Administration Dexamethasone Sodium Phosphate 10 mg 08/12/23 08:17 08/12/23 08:22 Dexamethasone 4mg/Ml 1ml Vial IV 08/12/23 08:18 10 mg ONCE ONE Administration Diphenhydramine HCl 25 mg 08/12/23 08:17 08/12/23 08:22 Diphenhydramine 50mg/Ml Vial IV 08/12/23 08:18 25 mg ONCE ONE Administration Hydroxyzine Pamoate 50 mg 08/12/23 07:06 08/12/23 07:29 Hydroxyzine Pamoate 25mg Capsule PO 08/12/23 07:07 50 mg ONCE ONE Administration Sodium Chloride 1,000 mls @ 999 mls/hr 08/12/23 06:54 08/12/23 07:29 Sod Chlor 0.9% 1000ml Bag IV 08/12/23 07:54 999 mls/hr .Q1H1M ONE Administration Ketorolac Tromethamine 15 mg 08/12/23 07:06 08/12/23 07:29 Ketorolac 30mg/Ml Vial IV 08/12/23 07:07 15 mg ONCE ONE Administration Prochlorperazine Edisylate 10 mg 08/12/23 08:17 08/12/23 08:22 Prochlorperazine 10mg/2ml Vial IV 08/12/23 08:18 10 mg ONCE ONE Administration ORDERS Category Date Time Status POCUS Point of Care (ER Only) Stat Exams 08/12/23 07:06 Completed XR chest portable Stat Exams 08/12/23 06:54 Completed Brain Natriuretic Peptide Stat Lab 08/12/23 06:56 Completed CBC w/Auto Diff [Complete Blood Count Auto Diff] Stat Lab 08/12/23 06:56 Completed Comprehensive Metabolic Panel Stat Lab 08/12/23 06:56 Completed D-Dimer Stat Lab 08/12/23 06:56 Completed HCG,Quantitative Stat Lab 08/12/23 06:56 Completed Lactate Venous Stat Lab 08/12/23 06:54 Ordered Magnesium Stat Lab 08/12/23 06:56 Completed T4 (Thyroxine) Stat Lab 08/12/23 06:56 Completed TSH [Thyroid Stimulating Hormone] Stat Lab 08/12/23 06:56 Completed Troponin I Q3H Lab 08/12/23 08:36 Completed Troponin I Q3H Lab 08/12/23 13:00 Ordered Troponin I Stat Lab 08/12/23 06:56 Completed Venous Blood Gas Stat RT 08/12/23 06:55 Completed MDM Narrative Medical Decision Narrative: 28-year-old female no relevant medical history presenting with palpitations and chest pain. Patient states her symptoms started yesterday, 08/10. Intermittent, sharp, nonexertional. Made better with sitting up, made worse with lying flat and lying on her left side. Chest pain is primarily left-sided lower chest wall in the midaxillary line, does not radiate, but feels as if her neck and face hurt at this point. This morning, 08/11, pain woke her up from sleep and she became concerned, so came to the emergency department. Intermittent nausea and shortness of breath. No fevers or chills, recent illness, lower extremity swelling, PND, orthopnea, recent travel history, history of DVT or PE, or any other concerns. History was obtained via conversation with patient. On arrival, patient hemodynamically stable, alert, oriented x4, appropriate, GCS 15, moving all extremities spontaneously, pupils equal and reactive to light. Full physical exam performed and significant for anxious appearing woman in no acute distress. Lungs are clear to auscultation bilaterally, cardiac exam within normal limits and pulses equal and symmetric. Patient grossly neurologically intact. No lower extremity swelling. Patient is tachycardic with normal rhythm, saturating about 95% on room air. Differential includes PE, pneumothorax, anxiety, hyperthyroidism, ACS, DC, bronchitis, pneumonia, among others Patient was given IV fluids, Toradol for symptomatic management and correction of underlying abnormalities. Workup independently interpreted and significant for nonactionable CBC or chemistry. VBG with mild respiratory alkalosis. Lactic acid mildly elevated 2.4, chemistry normal. Initial troponin negative. hCG negative. Chest x-ray without acute cardiopulmonary airspace disease. See radiology read for full review of final results. Independent interpretation of EKG shows sinus tachycardia with incomplete right bundle branch block. Borderline ME prolongation. QRS, QT intervals within normal limits. Rightward leaning axis. Patient placed on continuous cardiac monitoring and continuous pulse ox with initial blood pressure 167/106, heart rate 131, saturation 97% on room air. Patient was placed in observation beginning at 7 AM in order to rule out evolving DC with delta troponins and determine need for admission versus home- going. The patient was provided serial exams, monitoring, headache cocktail while awaiting results. Independent interpretation of results demonstrated negative delta troponin. On reevaluation, Much better and opting for home- going. At this time, I feel patient is appropriate for discharge. Total observation time 3 hours. Because patient at baseline without signs or symptoms of clinical decompensation, deemed appropriate for discharge. Results were relayed to patient who voiced understanding and were agreeable to outpatient management and follow up. I discussed my clinical impression with patient and answered all questions. At this time, the evidence for any other entities in the differential is insufficient to warrant any further testing or ED observation. This was explained as well. Advisory was given that persistent or worsening symptoms require further evaluation. I confirmed the understanding of this discussion.
[2023-08-12 07:12] LABS: Albumin Level 4.5 g/dl (3.5-5.0); Albumin/Globulin Ratio 1.4 (1.1-1.8); Alkaline Phosphatase 103 U/L (38-126); Anion Gap 14.2 mEq/L (5-15); Bilirubin,Total 0.6 mg/dl (0.2-1.3); Blood Urea Nitrogen 11 mg/dl (7-17); Calcium 9.5 mg/dl (8.4-10.2); Carbon Dioxide 22 mmol/L (22.0-30.0); Chloride 105 mmol/L (98-107); Creatinine Clearance Estimated 146 mL/min (50-200); Estimated Glomerular Filt Rate 98 ml/min (>60); GFR (African American) 119 ML/MIN (>60); Globulin 3.2 g/dL (1.3-3.2); Glucose 107 mg/dl (74-100); Potassium 4.2 mmoL/L (3.5-5.1); Sodium 137 mmol/L (136-145); Total Protein,Serum 7.7 g/dl (6.3-8.2)
[2023-08-12 07:18] LABS: D-Dimer 0.26 ug/mL (0.0-0.5)
--- NOTE | 2023-08-12 07:24 | PC.NURSE ---
called resp to let them know about lactate venous and vbg order. let them know a green top was at lab
[2023-08-12 07:26] LABS: NT Pro Brain Natriuretic Pep. < 20.0 pg/mL (0-125)
--- NOTE | 2023-08-12 07:27 | PC.NURSE ---
pt light was turned off and lamp bed light turned on and warm blanket given
[2023-08-12 07:29] LABS: VBG HCO3 23.9 mmol/L (23-30); VBG Oxygen Saturation 95.3 % (50-70); VBG PCO2 34.5 mmol/L (35-51); VBG PH 7.46 mmol/L (7.31-7.41); VBG PO2 72.9 mmol/L (28-40); VBG Total CO2 24.9 mmol/L (23-27)
[2023-08-12] MEDS: KETOROLAC 30MG/ML VIAL 15 MG IV (07:29)
[2023-08-12] MEDS: hydrOXYzine pamoate 25MG CAPSULE 50 MG PO (07:29)
[2023-08-12] MEDS: ACETAMINOPHEN 1,000MG/100ML VIAL 1000 MG IV (07:29)
[2023-08-12] MEDS: 0.9 % SODIUM CHLORIDE 1000ML 1,000 ML 999 ML IV (07:29)
[2023-08-12 07:31] LABS: Lactate Venous 2.4 mmol/L (0.4-2.0)
[2023-08-12 07:31] LABS: T4 (Thyroxine) 11.6 ug/dl (5.53-11.0)
--- NOTE | 2023-08-12 07:37 | PC.NURSE ---
xray at bs
--- NOTE | 2023-08-12 07:37 | PC.NURSE ---
portable xray at bedside
--- NOTE | 2023-08-12 07:40 | PC.NURSE ---
er at bedside
[2023-08-12 07:45] LABS: Thyroid Stimulating Hormone 6.12 uIU/mL (0.465-4.68)
[2023-08-12 07:46] LABS: Troponin I < 0.01 ng/ml (0.00-0.034)
--- NOTE | 2023-08-12 08:03 | PC.NURSE ---
rounded on pt states no needs call light in reach
[2023-08-12 08:06] LABS: Magnesium 1.8 mg/dl (1.6-2.3)
[2023-08-12 08:07] LABS: HCG,Quantitative < 2 mIU/ml (0-5.42)
--- NOTE | 2023-08-12 08:18 | PC.NURSE ---
assisted pt to the restroom and back to her room. steady gait noted. pt tolerated well. call light within reach.
[2023-08-12] MEDS: DEXAMETHASONE 4MG/ML 1ML VIAL 10 MG IV (08:22)
[2023-08-12] MEDS: diphenhydrAMINE 50MG/ML VIAL 25 MG IV (08:22)
[2023-08-12] MEDS: PROCHLORPERAZINE 10MG/2ML VIAL 10 MG IV (08:22)
[2023-08-12 08:32] LABS: Alanine Aminotransferase 34 U/L (12-78); Aspartate Amino Transferase 40 U/L (14-36)
--- NOTE | 2023-08-12 09:29 | PC.NURSE ---
assisted pt to the restroom and back to her room. tolerated well. states she is feeling better. call light within reach. bed in lowest position. er md aware.
[2023-08-12 09:37] LABS: Troponin I < 0.01 ng/ml (0.00-0.034)
[2023-08-12 11:32] LABS: Reflex Lactic Add Lactic Reflex
== END 2023-08-12 09:57 | disposition home or self-care (01) ==
PROVIDERS: Emergency Provider Emergency Medicine; PCP Physician Assistant
DX: R07.89 Other chest pain (principal); R09.1 Pleurisy; M54.2 Cervicalgia; M79.602 Pain in left arm; R11.0 Nausea; R06.02 Shortness of breath; R61 Generalized hyperhidrosis; E04.1 Nontoxic single thyroid nodule; F41.1 Generalized anxiety disorder; F33.9 Major depressive disorder, recurrent, unspecified; K21.9 Gastro-esophageal reflux disease without esophagitis; E78.5 Hyperlipidemia, unspecified; Z86.73 Personal history of transient ischemic attack (TIA), and cerebral infarction without residual deficits
CPT/HCPCS: 71045; 80053; 82803; 83735; 83880; 84436; 84443; 84484; 84702; 85025; 85378; 93005; 96361; 96374; 96375; 99285; J0131